=== PATIENT | female | born 1970 | race Caucasian/White ===

== ENCOUNTER 2018-04-22 04:43 | Inpatient (IN) | payer SELFPAY ==
[~2018-04-22] VITALS: Ht 160 cm; Wt 76.7 kg
[2018-04-22] VITALS (22 sets, daily range): BP systolic 107–183; BP diastolic 62–108
[~2018-04-22 04:43] MED LIST: ACET-704 PO; ALPR0.5T PO; ALPR1TAB2 PO; ALPR1TAB6 PO; ASPI81TA50 PO; BUPR100T11 PO; CILO100T PO; CYCL5TAB PO; HUM100VI5 SQ; HYDR-2678 PO; INSU100V13 SQ; LOVA10TA PO; LOVA20TA2 PO; METF100010 PO; METF500T16 PO; METO-239 PO; METO-269 PO; OXYC1TAB15 PO; OXYC1TAB7 PO; OXYC5CAP PO; PRAS10TA9 PO; TRAZ-86 PO
[2018-04-22] MEDS ORDERED: INSU100V13 SQ (05:32)
[2018-04-22] MEDS ORDERED: DEXTROSE 50% 25 GM / 50ML DISP.SYRIN. IV PRN (06:15)
[2018-04-22] MEDS: IV NORMAL SALINE 1000ML BAG 1,000 ML IV SCH ×2 (06:34→19:35)
[2018-04-22] MEDS ORDERED: IOHEXOL 300 MG/ML 100ML VIAL. IV ONE (07:15)
[2018-04-22] MEDS ORDERED: CONTRAST GIVEN. MC PRN (07:15)
--- NOTE | 2018-04-22 08:42 | RAD ---
Examination: CT angiography head and neck HISTORY: History of CVA post TPA COMPARISON: None available TECHNIQUE: Axial CT angiography images of the head and neck were performed with IV contrast. Coronal and sagittal 3-D MIP reformats are performed Exposure: One or more of the following individualized dose reduction techniques were utilized for this examination: 1. Automated exposure control 2. Adjustment of the mA and/or kV according to patient size 3. Use of iterative reconstruction technique PQRS Compliance Statement - Stenosis calculations for CT, MR and conventional angiography are based upon measurement of the distal ICA diameter in accordance with the NASCET methodology. Stenosis calculations for carotid ultrasound studies are derived from validated velocity criteria which are known to correlate with the NASCET methodology. FINDINGS: The origin of the great vessels from the arch of the aorta grossly appear patent. The visualized common carotid arteries, internal, external carotid arteries are patent. The visualized petrous and cavernous portions of the internal carotid arteries are patent. The bilateral middle cerebral arteries, anterior cerebral arteries are patent without thrombosis. The bilateral vertebral arteries are patent. The basilar artery, left posterior cerebral artery is patent. There is origin of the right posterior cerebral artery from the right ICA. There is a 1.6 cm nodule identified in the right lobe of the thyroid gland. Emphysematous changes identified in the apical lungs Moderate degenerative changes cervical spine. IMPRESSION: 1. No evidence of occlusive thrombus or aneurysm identified in the visualized carotid vertebrobasilar arterial system. 2. 1.6 cm nodule identified in the right lobe of thyroid gland. Follow-up nonemergent ultrasound thyroid is recommended. Electronically signed by: Gustavo Rosas MD (04/22/2018 8:38 AM) [facility]
[2018-04-22] MEDS: INSULIN LISPRO 300 UNITS/3 ML INSULN.PEN. SQ SCH ×3 (09:30→17:51)
--- NOTE | 2018-04-22 11:04 | HP ---
ADMIT DATE: 04/22/2018 HISTORY OF PRESENT ILLNESS: The patient is a 47-year-old female patient with multiple medical problems who presented to the Emergency Room with sudden onset of difficulty finding her words, slurred speech and numbness in her lips and fingers. The patient noted that she was cooking dinner at home with a friend when she had the acute onset of the symptoms that started approximately at 9:30 p.m. last night. The patient presented to the Emergency Department 3 hours after the onset of symptoms and she knows that her symptoms have been progressive. She and after the onset of symptoms because she lied down to try and make them go away. She notes also that she felt short of breath since the onset of symptoms. She denied having any similar symptoms in the past. She is currently on antiplatelet in the form of aspirin and Plavix. She denied any trauma, falls, fever, chills or rigors. She stated that she feels drugged. She was extensively investigated in the Emergency Room and has had a CT scan of the head without contrast, which showed no intracranial hemorrhage, no midline shift. Basilar cisterns are patent Ventricles and sulci are unremarkable. No acute osseous abnormality. Orbits and paranasal sinuses unremarkable. Apparently, the neurologist was contacted. Her NIHSS was [address] scan without acute process. EKG is stable and she was given aspirin and then, Dr. Hunter, the neurologist was contacted and he agreed to administer TPA that was initiated. An attempt at obtaining CT angio of the chest at the head and neck was not obtained because of lack of vascular access despite multiple attempts by the Emergency Room registered nurses and 2 attempts by the ER physician under ultrasound guidance. [facility] was contacted and Dr. Vora, the neurologist at stated that the probability of large vessel occlusion is very low given the symptomatology and reports interventionalist typically will not intervene unless if the patient's National [facility] score was less than 6 and therefore, the patient was transferred to [facility] through the ICU and by the time I saw her, she was sleepy but arousable. She was responding appropriately and apart from headache, she denied any other complaint. PAST MEDICAL HISTORY: Significant for hypertension, hyperlipidemia, type 2 diabetes. She has coronary artery disease with PCI and stent deployment. She also has breast cancer for which she underwent bilateral mastectomy. She is also known to have irritable bowel syndrome as well as anxiety. PAST SURGICAL HISTORY: Significant for two C-sections, PCI with stent deployment as well as double mastectomy. ALLERGIES: SHE IS ALLERGIC TO PENICILLIN. FAMILY HISTORY: She has 4 sisters alive and 1 brother still alive and healthy. One brother at age of 29. He committed suicide. Her father of gastric cancer at the age of 61. Her mother is still alive and survived the breast cancer. She is also known to have gastric ulcers and anxiety. SOCIAL HISTORY: She is single, never , currently living with her boyfriend. She has 8 children, 5 sons and 3 daughters. She smokes less than a pack a day of cigarettes. She does not drink alcohol or use any recreational drugs. REVIEW OF SYSTEMS: The patient denied any blurring of vision, cataract, glaucoma or macular degeneration. Denied any earache, tinnitus or sensorineural deafness. Denied any nosebleeds, stuffy nose or postnasal drip. Denied any sore throat, sore tongue, toothache, hoarseness of voice or difficulty swallowing. Denied any nausea, vomiting, diarrhea or constipation. Denied any hematemesis, melena or hematochezia. Denied any chest pain. Did complain of shortness of breath. Denied any orthopnea or paroxysmal nocturnal dyspnea. Denied any cough, phlegm or hemoptysis. PHYSICAL EXAMINATION: GENERAL: When I saw her, she was resting slightly propped up in bed, in no apparent respiratory distress. No pallor, jaundice, cyanosis, or thyromegaly. No jugular venous distension. No limb edema. VITAL SIGNS: Her heart rate was 94, blood pressure was 146/75, temperature was 98.7, respiratory rate was 18 and oxygen saturation was 97%. HEAD, EYES, EARS, NOSE AND THROAT: Showed normocephalic, atraumatic. NECK: Supple. HEART: Showed normal first and second sounds. No gallop, rub or murmur. CHEST: Clear to auscultation. No crepitation or rhonchi. ABDOMEN: Distended, soft, nontender. NEUROLOGIC: She was sleepy, but arousable. All her cranial nerves are intact. EXTREMITIES: She moves her extremities spontaneously. LABORATORY DATA: She apparently has had lab work done at [facility], which showed a white cell count of 11,600, hemoglobin 15.4, hematocrit 44.9, MCV 88 and platelet count 224,000 with normal manual differential. Her prothrombin time was 10.1, INR of 1, aPTT was 24. Her serum sodium was 135, potassium 3.5, chloride 97, bicarbonate 27, glucose was 470, BUN of 10, creatinine 0.8. Estimated GFR was 77 mL per minute. Her total protein was 6.5, albumin was 3.7, calcium was 9.1. Total bilirubin, AST, ALT, alkaline phosphatase were normal. Her albumin was 3.7, globulin was 2.8. Her magnesium was 1.9, lactic acid was 1.4, ammonia was less than 10. Her tox screen was positive for cannabinoids as well as benzodiazepine. Was negative for opiates, methadone, barbiturate, phencyclidine, amphetamine, methamphetamine, cocaine and alcohol. Her CT scan of the head without contrast showed that there is no intracranial hemorrhage with midline shift. Basal cisterns are patent. Ventricles and sulci are unremarkable. No acute osseous abnormality. Orbits and paranasal sinuses are unremarkable. ASSESSMENT AND PLAN: Basically, the patient is transferred to [facility] ICU. We will consult Neurology. Arrangement has been made for her to have a CT, CT angio of the neck and head. I will consult the speech therapy as well as physical and occupational therapist and start her on insulin sliding scale. I will hold her metformin as she will receive intravenous contrast and we will decide on further management according to her response. JESSICA CHIRINOS MD DR: SABINA/lesvia JOB#: [id number] / [id number]
[2018-04-22] MEDS: ASPIRIN ENTERIC COATED 81 MG TABLET.DR. PO SCH (13:59)
[2018-04-22] MEDS: ALPRAZolam 1 MG TABLET PO SCH ×2 (14:00→21:36)
[2018-04-22] MEDS: PRASUGREL 10 MG TABLET. PO SCH (14:00)
[2018-04-22] MEDS: METOPROLOL SUCC 24HR ER 25 MG TAB.ER.24H. PO SCH (14:00)
[2018-04-22] MEDS: oxyCODONE/APAP 5/325 1 TAB TABLET PO PRN (14:07)
[2018-04-22] MEDS: buPROPion XL 150 MG TAB.ER.24H. PO SCH (14:57)
--- NOTE | 2018-04-22 20:48 | PDOC2 ---
CONSULT Date of Consult Date of Consult DATE: 04/22/18 TIME: 20:45 Reason for Consult Reason for Consult: code stroke Identification/Chief Complaint Chief Complaint slurry speech History of Present Illness Reason for Visit: This patient is 47-year-old woman with past medical history of multiple medical problems patient presented with slurring of speech, word-finding difficulty patient had numbness on the left side of the face patient was feeling weak patient was having difficulty with gait and balance. She presented to emergency room in timely fashion. The on the brain which did not show any evidence of acute intracranial abnormality there was no evidence of acute hemorrhage. Past Medical History Cardiovascular: CAD, HTN, [place] GI: No pertinent hx Heme/Onc: Cancer Hepatobiliary: No pertinent hx Psych: Addictions Rheumatologic: No pertinent hx Infectious disease: No pertinent hx Renal/: No pertinent hx Endocrine: Diabetes Past Surgical History Past Surgical History: Mastectomy, Hysterectomy, Other Family History Family History: Other Social History ALCOHOL: occassional Drugs: None Lives: with Family Current Medications Current Medications Current Medications Influenza Virus Vaccine (Afluria Trivalent [id number] Syringe) 0.5 ml ONCE ONCE VAX IM Last administered on 04/22/18at 10:18; Start 04/22/18 at 09:00; Stop 04/22/18 at 09:01; Status DC Sodium Chloride 1,000 ml @ 75 mls/hr [id number] IV Last administered on at 06:34; Start 04/22/18 at 06:15 Insulin Glargine (Lantus) 65 units QHS SQ ; Start 04/22/18 at 21:00 Insulin Human Lispro (HumaLOG) 0-9 UNITS TIDWMEALS SQ Last administered on 04/22at 17:51; Start 04/22/18 at 08:00 Dextrose (Dextrose 50%-Water Syringe) 12.5 gm PRN Q15MIN PRN IV SEE COMMENTS; Start 04/22/18 at 06:15 Iohexol (Omnipaque 300 Mg/ml) 75 ml 1X ONCE IV Last administered on 04/22/18at 07:15; Start 04/22/18 at 07:15; Stop 04/22/18 at 07:16; Status DC Info (CONTRAST GIVEN -- Rx MONITORING) 1 each PRN DAILY PRN MC SEE COMMENTS; Start 04/22/18 at 07:15; Stop 04/24/18 at 07:14 Alprazolam (Xanax) 1 mg TID PO Last administered on 04/22/18at 14:00; Start 04/22/18 at 14:00 Aspirin (Ecotrin) 81 mg DAILY PO ; Start 04/22/18 at 14:00 Bupropion HCl (Wellbutrin Xl) 150 mg DAILY PO Last administered on 04/22/18at 14 :57; Start 04/22/18 at 14:00 Metoprolol Succinate (Toprol Xl) 25 mg DAILY PO Last administered on 04/22/18at 14:00; Start 04/22/18 at 14:00 Oxycodone/ Acetaminophen (Percocet 5/325) 1 tab PRN Q6HRS PRN PO MODERATE TO SEVERE PAIN Last administered on 04/22/18at 14:07; Start 04/22/18 at 13:45 Trazodone HCl (Desyrel) 100 mg QHS PO ; Start 04/22/18 at 21:00 Cyclobenzaprine HCl (Flexeril) 5 mg QHS PO ; Start 04/22/18 at 21:00 Insulin Glargine (Lantus) 65 units QHS SQ ; Start 04/22/18 at 21:00; Status Cancel Atorvastatin Calcium (Lipitor) 5 mg QHS PO ; Start 04/22/18 at 21:00 Metformin HCl (Glucophage) 1,000 mg DAILYWBKFT PO ; Start 04/24/18 at 08:00 Prasugrel (Effient) 10 mg DAILYWBKFT PO ; Start 04/22/18 at 14:00 Active Scripts Active Effient (Prasugrel Hcl) 10 Mg Tablet 1 Tab PO DAILY Metoprolol Succinate ( Xl ) (Metoprolol Succinate) 25 Mg Tab.er.24h 1 Tab PO DAILY Reported Levemir (Insulin Detemir) 100 Unit/1 Ml Vial 65 Unit SQ QHS Oxycodone-Acetaminophen 5-325 (Oxycodone Hcl/Acetaminophen) 1 Each Tablet 1 Each PO PRN Q6HRS PRN Aspir-Low (Aspirin) 81 Mg Tablet.dr 1 Tab PO DAILY Lovastatin 10 Mg Tablet 10 Mg PO HS Alprazolam 1 Mg Tablet 1 Tab PO TID Cyclobenzaprine Hcl 5 Mg Tablet 1 Tab PO QHS Metformin Hcl Er (Metformin Hcl) 1,000 Mg Tab.er.24 1,000 Mg PO DAILYWBKFT Bupropion Hcl 100 Mg Tablet 150 Mg PO DAILY Trazodone Hcl 100 Mg Tablet 1 Tab PO QHS Allergies Allergies: Coded Allergies: Penicillins (Verified Allergy, Intermediate, 11/27/15) Physical Exam Physical Exam General no acute distress. Respiratory: clear Heart: Regular rate and rhythm, S1S2 normal HEENT: Normocephalic and atraumatic. NECK: Supple without bruit Respiratory: Clear to auscultation bilaterally Heart: Regular rate and rhythm, S1S2 normal NEUROLOGIC: Mental status able to tell is name, right month, knows he is in the hospital. Able to follow simple commands. Cranial nerve equally reactive pupils, and intact extraocular movements. no facial asymmetry. Left face dec sensation, Palate elevates and tongue protrudes in midline. Reflexes are 1+ with flexor plantar responses. Strength able to move all exts equally. Sensory exam is intact for light touch and pinprick. Gait in bed. Vitals VITALS Vital Signs Date Time Temp Pulse Resp B/P (MAP) Pulse Ox O2 Delivery O2 Flow Rate FiO2 04/22/18 20:00 Room Air 04/22/18 20:00 98.2 81 18 143/71 (95) 98 98.2 04/22/18 14:07 2.0 Labs Labs Laboratory Tests Test 04/22/18 05:00 04/22/18 05:11 04/22/18 09:28 04/22/18 12:21 Nasal Screen MRSA (PCR) Negative (Negative) Glucose (Fingerstick) 359 mg/dL (70-99) 394 mg/dL (70-99) 247 mg/dL (70-99) Laboratory Tests Test 04/22/18 05:00 04/22/18 05:11 04/22/18 09:28 04/22/18 12:21 Nasal Screen MRSA (PCR) Negative (Negative) Glucose (Fingerstick) 359 mg/dL (70-99) 394 mg/dL (70-99) 247 mg/dL (70-99) Assessment/Plan Assessment/Plan This patient is 47-year-old woman with past medical history of multiple medical problems patient presented with slurring of speech, word-finding difficulty patient had numbness on the left side of the face patient was feeling weak patient was having difficulty with gait and balance. She presented to emergency room in timely fashion. The on the brain which did not show any evidence of acute intracranial abnormality there was no evidence of acute hemorrhage. 47-year-old woman presented to emergency room with the stroke symptoms patient was within the window for IV t-PA there was no contraindications to IV t-PA patient agreed to risk and benefit. Patient was transferred to [facility] patient had a CTA head and neck done which was negative for any acute thrombus or aneurysm. Patient had improvement of symptoms after IV t-PA patient was admitted to ICU for close monitoring. Check carotid Doppler with bubble study. Will get MRI of brain and 24-hour post TPA. PT OT speech evaluation. Check lipid profile, statin, Patient is admitted under post TPA protocol. Continue medical management. Plan discussed with patient and patient 's family in detail IRMA LION MD Apr 22, 2018 20:48
[2018-04-22] MEDS ORDERED: INSULIN GLARGINE 300 UNITS/3 ML INSULN.PEN. SQ SCH ×2 (21:00)
[2018-04-22] MEDS ORDERED: traZODone 100 MG TABLET. PO SCH (21:00)
[2018-04-22] MEDS ORDERED: CYCLOBENZAPRINE 10 MG TABLET. PO SCH (21:00)
[2018-04-22] MEDS ORDERED: ATORVASTATIN CALCIUM 10 MG TABLET. PO SCH (21:00)
[2018-04-23] VITALS (16 sets, daily range): BP systolic 96–142; BP diastolic 49–78
[2018-04-23 04:30] LABS: HEMATOCRIT 43.5 % (36.0-47.0); RED BLOOD COUNT 4.9 x10^6/uL (3.50-5.40); RED CELL DISTRIBUTION WIDTH 13.4 % (11.5-14.5); WHITE BLOOD COUNT 6.7 x10^3/uL (4.0-11.0)
[2018-04-23 04:55] LABS: ALBUMIN 3.3 g/dL (3.4-5.0); ALBUMIN/GLOBULIN RATIO 1.1 (1.0-1.7); CALCIUM 8.8 mg/dL (8.5-10.1); CREATININE 0.7 mg/dL (0.6-1.0); GFR 90.5; POTASSIUM 3.4 mmol/L (3.5-5.1); TOTAL BILIRUBIN 0.4 mg/dL (0.2-1.0); TOTAL PROTEIN 6.3 g/dL (6.4-8.2)
[2018-04-23 04:56] LABS: CHOLESTEROL/HDL RATIO 6.7
[2018-04-23] MEDS: INSULIN LISPRO 300 UNITS/3 ML INSULN.PEN. SQ SCH ×2 (08:00→12:34)
[2018-04-23] MEDS: PRASUGREL 10 MG TABLET. PO SCH (08:09)
[2018-04-23] MEDS: ASPIRIN ENTERIC COATED 81 MG TABLET.DR. PO SCH (08:09)
[2018-04-23] MEDS: oxyCODONE/APAP 5/325 1 TAB TABLET PO PRN ×2 (08:10→14:12)
[2018-04-23] MEDS: METOPROLOL SUCC 24HR ER 25 MG TAB.ER.24H. PO SCH (08:11)
[2018-04-23] MEDS: ALPRAZolam 1 MG TABLET PO SCH ×2 (08:11→13:50)
[2018-04-23] MEDS: IV NORMAL SALINE 1000ML BAG 1,000 ML IV SCH (08:55)
[2018-04-23] MEDS: buPROPion XL 150 MG TAB.ER.24H. PO SCH (10:22)
[2018-04-23] MEDS ORDERED: GADOBUTROL 7.5 MMOL/7.5 ML VIAL IV ONE (11:00)
--- NOTE | 2018-04-23 15:02 | RAD ---
MRI of the Brain without and with Contrast 04/23/2018 Clinical History: Right arm numbness and tingling. Post TPA therapy. Technique: Unenhanced T1-weighted sagittal and axial and FLAIR, T2-weighted, gradient echo and diffusion-weighted axial images of the brain were obtained. After the intravenous administration of 7.5 cc of Gadavist, enhanced T1-weighted axial, sagittal and coronal images of the brain were obtained. Findings: Comparison is made to patient's CT scan of the head dated 04/22/2018. The ventricles and sulci are within normal limits in size and configuration. Patchy and several small scattered areas of increased signal intensity are seen within the periventricular and subcortical white matter of both cerebral hemispheres on the FLAIR and T2-weighted images consistent most likely with areas of minimal small vessel ischemic disease. No acute parenchymal abnormality is seen. No abnormal area of contrast enhancement is seen. No extra-axial fluid collection is noted. There is no MRI evidence of acute ischemia/infarction. Mild mucosal thickening in seen scattered throughout the paranasal sinuses. There are minimal bilateral mastoid effusions. Normal flow voids are seen within the major vascular structures surrounding the brain parenchyma. Impression: No acute parenchymal abnormality is seen. Electronically signed by: Brandon Yi MD (04/23/2018 2:58 PM) [id number]
--- NOTE | 2018-04-23 15:28 | PN ---
DATE: 04/23/2018 SUBJECTIVE: The patient is resting, slightly propped up, sleeping comfortably in no apparent distress. She is awake, alert. Upon questioning her, she denied any complaints except some headache. Denied any nausea or vomiting. Denied any tingling, numbness or weakness. She apparently has been up and about and did well with her food and has no problem with swallowing. She was seen by the speech therapist and she is on a regular diet with thin liquid. She has had a head and neck CT angio, which basically showed that the visualized common carotid arteries, internal, and external carotid arteries are patent. The visualized petrous and cavernous portions of the internal carotid arteries are patent. The bilateral middle cerebral arteries and anterior cerebral arteries are patent without any thrombus. The basilar artery, left posterior cerebral artery is patent. There is a origin of the right posterior cerebral arteries from the right internal carotid artery. There is a 1.6 cm nodule identified in the right lobe of the thyroid gland, emphysematous changes identified in the apical lungs with degenerative changes of cervical spine with the impression that there is no evidence of occlusive thrombus or aneurysm identified in the visualized carotid and vertebrobasilar arterial system. PHYSICAL EXAMINATION: GENERAL: When I examined her this morning, she looked well and was clearly in no apparent respiratory distress. No pallor, jaundice, cyanosis, or thyromegaly. No jugular venous distension. No lower limb edema. VITAL SIGNS: Her heart rate was 73, blood pressure was 126/68, temperature was 98, respiratory rate was 18 and oxygen saturation was 98% on room air. HEAD, EYES, EARS, NOSE AND THROAT: Showed normocephalic, atraumatic. NECK: Supple. HEART: Showed normal first and second sounds. No gallop, rub or murmur. CHEST: Clear to auscultation. No crepitation or rhonchi. ABDOMEN: Distended, soft, nontender. NEUROLOGIC: She is awake, alert, responding appropriately. All cranial nerves intact. She moves extremities without difficulty. She ambulates without assistance or assistive devices. LABORATORY DATA: Showed a white cell count 6700, hemoglobin 15, hematocrit 44, MCV 89 and platelet count of 196,000. Her chemistry as of this morning showed a serum sodium 143, potassium 3.4, chloride 106, bicarbonate 27, anion gap of 10, BUN 6, creatinine 0.7, estimated GFR was 90 mL per minute, her glucose was 202, calcium was 8.8. Total bilirubin, AST, ALT, alkaline phosphatase were normal. Total protein was 6.3, albumin 3.3. Her serum triglycerides were 247, total cholesterol was 202, LDL cholesterol was 123, VLDL was 49, her HDL cholesterol was 30 and the ratio was 6.7. Her nasal screen for MRSA by PCR was negative. IMPRESSION: In summary, this is a 47-year-old female patient who was admitted with a slurring speech, word finding difficulty, numbness in the left side of the face and feeling weak, difficulty with her gait and balance. She had a CT scan of the brain, which showed no evidence of any intracranial hemorrhage. She was treated with TPA after consultation with the neurologist and was transferred to [facility]. Her symptoms have improved and she was admitted to the ICU for close monitoring. She is scheduled to have an MRI. She was evaluated by Speech Therapy and she is now on regular diet with thin liquid. She will be evaluated by PT, OT and if she remained stable and the neurologist has no object in discharging her, we will let her go home. JESSICA CHIRINOS MD DR: SABINA/lesvia JOB#: [id number] / [id number]
--- NOTE | 2018-04-23 15:40 | CARD ---
MR#: [id number] Date of Study: 04/23/2018 Ordering Physician: IRMA LION, Referring Physician: JESSICA CHIRINOS, Tech: Chrissy Baptiste APPROVED REPORT EXAM: Two-dimensional and M-mode echocardiogram with Doppler and color Doppler. Other Information Quality : AverageHR: 65bpm INDICATION CVA/TIA Echo Enhancing Agent Indication: Rule Out Septal Defect Agent/Amount Used: Agitated Saline 8mL 2D DIMENSIONS RVDd2.5 (2.9-3.5cm)Left Atrium(2D)3.0 (1.6-4.0cm) IVSd1.1 (0.7-1.1cm)Aortic Root(2D)1.9 (2.0-3.7cm) LVDd3.6 (3.9-5.9cm)LVOT Diameter2.0 (1.8-2.4cm) PWd1.0 (0.7-1.1cm)LVDs2.0 (2.5-4.0cm) FS (%) 43.6 %SV40.4 ml LVEF(%)75.7 (>50%) Aortic Valve AoV Peak Chaim.94.4cm/sAoV VTI18.7cm AO Peak GR.3.6mmHgLVOT VTI 13.15cm AO Mean GR.2mmHg Mitral Valve MV E Iaqmjjvc15.0cm/sMV DECEL [id number] MV A Lnbumunc00.1cm/sE/A Ratio1.6 TDI Lateral E' P. V6.95cm/sMedial E' P. V7.47cm/s E/Lateral E'11.1E/Medial E'10.3 Tricuspid Valve TR P. Xktrrhoe720qe/sRAP [id number] TR Peak Gr.12icAaNKNR87clGn LEFT VENTRICLE The left ventricle is normal size. There is normal left ventricular wall thickness. The left ventricu lar systolic function is normal and the ejection fraction is within normal range. The Ejection Fracti on is >55%. There is normal LV segmental wall motion. The left ventricular diastolic function and sky ling is normal for age. RIGHT VENTRICLE The right ventricle is borderline dilated. There is normal right ventricular wall thickness. The righ t ventricular systolic function is normal. ATRIA The left atrium size is normal. The right atrium size is normal. The interatrial septum is intact wit h no evidence for an atrial septal defect or patent foramen ovale as noted on 2-D or Doppler imaging. Agitated saline study was suboptimal but no clear evidence of atrial level shunt. AORTIC VALVE The aortic valve is normal in structure and function. Doppler and Color Flow revealed trace aortic re gurgitation. There is no significant aortic valvular stenosis. MITRAL VALVE The mitral valve is normal in structure and function. There is no mitral valve stenosis. Doppler and Color-flow revealed trace mitral regurgitation. TRICUSPID VALVE The tricuspid valve is normal in structure and function. Doppler and Color Flow revealed trace tricus pid regurgitation with an estimated PAP of 19 mmHg. There is no tricuspid valve stenosis. PULMONIC VALVE The pulmonic valve is not well visualized. Doppler and Color Flow revealed trace pulmonic valvular re gurgitation. There is no pulmonic valvular stenosis. GREAT VESSELS The aortic root is normal in size. The IVC is normal in size and collapses >50% with inspiration. PERICARDIAL EFFUSION There is no evidence of significant pericardial effusion. Critical Notification Critical Value: No <Conclusion> The left ventricular systolic function is normal and the ejection fraction is within normal range. Th e Ejection Fraction is >55%. There is normal LV segmental wall motion. The interatrial septum is intact with no evidence for an atrial septal defect or patent foramen ovale as noted on 2-D or Doppler imaging. Agitated saline study was suboptimal but no clear evidence of at rial level shunt. Signed by : Armando Villalobos, Electronically Approved : 04/23/2018 15:39:34
--- NOTE | 2018-04-23 16:43 | PDOC ---
PROGRESS NOTES Assessment Assessment IMPRESSION: TIA like symptoms, maybe cognitive impairment due to hyperglycemia. Hyperglycemia, glucose level 394. DM. HTN. CAD. Thyroid nodule. No evidence of CVA this time. RECOMMENDATIONS/PLAN: ASA 325 mg daily. Lipitor 40 mg HS. Control hyperglycemia. Treat medical diseases. FU with PCP. CTA: normal. Echo + Bubble study: negative. Past Medical History Cardiovascular: CAD, HTN, [place] GI: No pertinent hx Heme/Onc: Cancer Hepatobiliary: No pertinent hx Psych: Addictions Rheumatologic: No pertinent hx Infectious disease: No pertinent hx Renal/: No pertinent hx Endocrine: Diabetes Past Surgical History Mastectomy, Hysterectomy. Family History Non contributory. Allergies Coded Allergies: Penicillins (Verified Allergy, Intermediate, 11/27/15) MEDICATIONS: Refer to [facility] REVIEW OF SYSTEMS: Constitutional: Over weight. Head: No traumatic brain or head injury. Skin: No edema, or rash. Ear: No infection.. Eyes: No vision loss, or diplopia. Nose: No bleeding or purulent discharges. Hearing: No hearing decrease. Neck: No injury. Breast: No history of cancer, masses, or discharges. Cardiac: CAD, HTN, HLD Pulmonary: No COPD. GI: No GI Ulcer, GI bleeding. Urinary/genital: UTI. Endocrine: Diabetes Mellitus. Skeletomuscular: No muscular atrophy, deformity. Neurological: see HP. Psychiatric: Denies drug use/abuse. Otherwise, not [id number] review of systems. PHYSICAL EXAMINATION: General appearance in no acute distress. HEENT: Normocephalic and nontraumatic. Eyes, nose, ears, and throat are unremarkable. Neck is supple. No lymphadenopathy. No bruits are heard over the carotid artery. No Crepitus. Cardiovascular: S1, S2, regular rate and rhythm. Pulmonary: Clear to auscultation bilaterally. Abdomen: Bowel sounds are positive. Abdomen is soft, nontender, and nondistended. Extremities: No rash, lesions, or edema. No restriction of range of motion NEUROLOGICAL EXAMINATION: Alert. Oriented to time, place and person. PERRL. EOMI. CN: no focal findings. Muscle tone: within normal. Muscle strength: 5 DTR: 2 Plantar reflex: Flexor response bilaterally Gait: At baseline normal. Sensory exam: no abnormal findings. No cerebellar signs elicited. F-T-N test accurate. Objective Objective Vital Signs Date Time Temp Pulse Resp B/P (MAP) Pulse Ox O2 Delivery O2 Flow Rate FiO2 04/23/18 16:23 98 Room Air 04/23/18 16:16 82 19 127/56 (79) 04/23/18 09:10 2.0 04/23/18 07:00 97.7 97.7 Intake and Output 04/23/18 07:00 Intake Total 1750 ml Output Total 2600 ml Balance -850 ml Intake Oral 1750 ml Output Urine Total 2600 ml Vitals Signs Vitals VS - Last 72 Hours, by Label Date Time Temp Pulse Resp B/P (MAP) Pulse Ox O2 Delivery O2 Flow Rate FiO2 04/23/18 16:23 98 Room Air 04/23/18 16:16 82 19 127/56 (79) 97 Room Air 04/23/18 16:00 Room Air 04/23/18 14:12 23 99 Room Air 04/23/18 14:00 80 20 123/66 (85) 97 Room Air 04/23/18 13:00 80 16 123/66 (85) 97 Room Air 04/23/18 12:00 86 16 115/75 (88) 98 Room Air 04/23/18 12:00 Room Air 04/23/18 11:00 80 15 133/71 (91) 98 Room Air 04/23/18 10:00 66 8 96/50 (65) 96 Room Air 04/23/18 09:10 8 2.0 04/23/18 09:00 65 13 105/49 (67) 95 Room Air 04/23/18 08:11 68 127/55 04/23/18 08:10 24 Room Air 04/23/18 08:00 63 13 127/55 (79) Room Air 04/23/18 08:00 Room Air 04/23/18 07:00 97.7 72 14 120/64 (82) Room Air 97.7 04/23/18 06:00 73 18 126/68 (87) 98 Room Air 04/23/18 05:00 70 18 119/70 (86) 98 Room Air 04/23/18 04:00 Room Air 04/23/18 04:00 98.0 67 18 119/66 (83) 98 Room Air 98.0 04/23/18 03:00 75 18 116/78 (91) 98 Room Air 04/23/18 02:00 81 18 118/70 (86) 98 Room Air 04/23/18 01:00 76 18 142/72 (95) 98 Room Air 04/23/18 00:06 98.7 84 18 125/69 (87) 98 Room Air 98.7 04/22/18 23:59 Room Air 04/22/18 23:00 84 18 107/62 (77) 98 Room Air 04/22/18 22:00 71 18 141/63 (89) 98 Room Air 04/22/18 21:00 75 18 154/75 (101) 98 Room Air 04/22/18 20:00 Room Air 04/22/18 20:00 98.2 81 18 143/71 (95) 98 Room Air 98.2 04/22/18 19:00 73 18 132/67 (88) 98 Room Air 04/22/18 18:00 81 18 174/108 (130) 98 Room Air 04/22/18 17:00 73 19 155/72 (99) 98 Room Air 04/22/18 16:00 Room Air 04/22/18 16:00 98.1 66 13 140/69 (92) 95 Room Air 98.1 04/22/18 15:00 79 22 142/71 (94) 100 Room Air 04/22/18 14:07 16 99 Nasal Cannula 2.0 04/22/18 14:00 79 22 142/71 (94) 100 Room Air 04/22/18 14:00 83 169/75 04/22/18 13:00 87 22 183/100 (127) 99 Room Air 04/22/18 12:00 98.2 72 21 156/80 (105) 99 Room Air 98.2 04/22/18 12:00 Room Air 04/22/18 11:00 95 15 147/75 (99) 95 Room Air 04/22/18 10:00 87 15 145/72 (96) 95 Room Air 04/22/18 09:00 86 18 121/75 (90) 96 Room Air 04/22/18 08:00 97.9 89 18 125/75 (92) 95 Room Air 97.9 04/22/18 08:00 Room Air 04/22/18 07:00 86 20 123/70 (87) 93 Room Air Laboratory Laboratory Laboratory Tests Test 04/22/18 17:45 12/2/18 21:42 04/23/18 03:50 04/23/18 07:27 Glucose (Fingerstick) 240 mg/dL (70-99) 200 mg/dL (70-99) 150 mg/dL (70-99) White Blood Count 6.7 x10^3/uL (4.0-11.0) Red Blood Count 4.90 x10^6/uL (3.50-5.40) Hemoglobin 15.0 g/dL (12.0-15.5) Hematocrit 43.5 % (36.0-47.0) Mean Corpuscular Volume 89 fL (79-100) Mean Corpuscular Hemoglobin 31 pg (25-35) Mean Corpuscular Hemoglobin Concent 34 g/dL (31-37) Red Cell Distribution Width 13.4 % (11.5-14.5) Platelet Count 196 x10^3/uL (140-400) Sodium Level 143 mmol/L (136-145) Potassium Level 3.4 mmol/L (3.5-5.1) Chloride Level 106 mmol/L (98-107) Carbon Dioxide Level 27 mmol/L (21-32) Anion Gap 10 (6-14) Blood Urea Nitrogen 6 mg/dL (7-20) Creatinine 0.7 mg/dL (0.6-1.0) Estimated GFR (Cockcroft-Gault) 90.5 BUN/Creatinine Ratio 9 (6-20) Glucose Level 202 mg/dL (70-99) Calcium Level 8.8 mg/dL (8.5-10.1) Total Bilirubin 0.4 mg/dL (0.2-1.0) Aspartate Amino Transf (AST/SGOT) 15 U/L (15-37) Alanine Aminotransferase (ALT/SGPT) 31 U/L (14-59) Alkaline Phosphatase 75 U/L (46-116) Total Protein 6.3 g/dL (6.4-8.2) Albumin 3.3 g/dL (3.4-5.0) Albumin/Globulin Ratio 1.1 (1.0-1.7) Triglycerides Level 247 mg/dL (0-150) Cholesterol Level 202 mg/dL (0-200) LDL Cholesterol, Calculated 123 mg/dL (0-100) VLDL Cholesterol, Calculated 49 mg/dL (0-40) Non-HDL Cholesterol Calculated 172 mg/dL (0-129) HDL Cholesterol 30 mg/dL (40-60) Cholesterol/HDL Ratio 6.7 Test 04/23/18 11:59 Glucose (Fingerstick) 362 mg/dL (70-99) Medication Medications Current Medications Atorvastatin Calcium (Lipitor) 5 mg QHS PO Last administered on 04/22/18at 21:37 ; Start 04/22/18 at 21:00 Cyclobenzaprine HCl (Flexeril) 5 mg QHS PO Last administered on 04/22/18at 21:36 ; Start 04/22/18 at 21:00 Gadobutrol (Gadavist) 7.5 mmol 1X ONCE IV Last administered on 04/23/18at 11:16 ; Start 04/23/18 at 11:00; Stop 04/23/18 at 11:01; Status DC Insulin Glargine (Lantus) 65 units QHS SQ Last administered on 04/22/18at 21:47 ; Start 04/22/18 at 21:00 Insulin Glargine (Lantus) 65 units QHS SQ ; Start 04/22/18 at 21:00; Status Cancel Metformin HCl (Glucophage) 1,000 mg DAILYWBKFT PO ; Start 04/24/18 at 08:00 Trazodone HCl (Desyrel) 100 mg QHS PO Last administered on 04/22/18at 21:36; Start 04/22/18 at 21:00 Comment Review of Relevant I have reviewed the following items vicky (where applicable) has been applied. MORIAH CONN MD Apr 23, 2018 16:43
--- NOTE | 2018-04-23 17:12 | EEG ---
DATE OF SERVICE: 04/23/2018 EEG NUMBER: [id number]. OBJECTIVE: This is a 47-year-old female patient with symptoms of cognitive impairment. EEG was requested to help rule out seizure. METHODS: Twenty electrodes were applied according to the international 10-20 electrode placement system. EKG monitoring, hyperventilation, intermittent photic stimulation, monopolar and bipolar montages are routinely utilized. The record was obtained on a digital system with video monitoring. FINDINGS: 1. Background: The patient was recorded in the awake, drowsy, and sleep states. The overall background amplitude is 10-30 microvolts. A posterior dominant rhythm of 9-10 Hz is observed. 2. Abnormalities: No specific epileptiform discharge or electrographic seizure is seen. No focal or diffuse slowing. 3. Activation: Hyperventilation was performed with good efforts and normal response. Intermittent photic stimulation was performed with photic driving. No specific epileptiform discharge or electrographic seizure induced by hyperventilation or intermittent photic stimulation. IMPRESSION: This EEG is a normal study for the awake, drowsy, and sleep states. No focal, lateralizing, specific epileptiform discharge or electrographic seizure is seen. MORIAH CONN MD DR: BENITO/lesvia JOB#: [id number] / [id number] NIA
[2018-04-23] MEDS ORDERED: ATORVASTATIN CALCIUM 40 MG TABLET. PO SCH (21:00)
[2018-04-24] MEDS ORDERED: metFORMIN 500 MG TABLET PO SCH (08:00)
[2018-04-24] MEDS ORDERED: ASPIRIN 325 MG TABLET PO SCH (09:00)
--- NOTE | 2018-04-24 16:25 | DS ---
DATE OF DISCHARGE: 04/23/2018 HOSPITAL COURSE: The patient is a 47-year-old female patient who was originally seen at [facility] Emergency Room with weakness, slurring of speech. She also complained that she has shortness of breath. Her CT scan of the head without contrast showed no intracranial hemorrhage and a midline shift. At the recommendation of the neurologist, she was treated with tPA and was transferred to ICU as per tPA protocol. She has had CT angio of the head and neck, which showed that there is no evidence of occlusive thrombus or aneurysm identified in the visualized carotid and vertebrobasilar arterial system. She also had an MRI of the brain, which showed that no acute parenchymal abnormality is seen, and as the patient remained hemodynamically stable, afebrile, and neurologically intact, a decision was made to discharge her home to follow with her primary care physician. PHYSICAL EXAMINATION: GENERAL: On the day of discharge, the patient was sitting on the edge of the bed comfortably in no apparent respiratory distress. She was slightly pale, but no jaundice, cyanosis, or thyromegaly. No jugular venous distension. No lower limb edema. VITAL SIGNS: Her heart rate was 82, blood pressure was 127/56, temperature was 98, respiratory rate was 16, and oxygen saturation was 98% on room air. HEAD, EYES, EARS, NOSE AND THROAT: Showed normocephalic, atraumatic. NECK: Supple. HEART: Showed normal first and second heart sounds with no gallop, rub or murmur. CHEST: Clear to auscultation. No crepitation or rhonchi. ABDOMEN: Distended, soft, nontender. NEUROLOGIC: She was awake, alert, responding appropriately. All cranial nerves intact. She moves extremities without difficulty. LABORATORY DATA: Showed that her white cell count was 6700, hemoglobin 15, hematocrit 44, MCV 89 and platelet count of 196,000. Her chemistry showed a serum sodium 143, potassium 3.4, chloride 106, bicarbonate 27, anion gap of 10, BUN 6, creatinine 0.7, estimated GFR was 90 mL per minute. Her glucose was 202. Her hemoglobin A1c was high at 11. Calcium was 8.8. Total bilirubin, AST, ALT, alkaline phosphatase were normal. Total protein was 6.3, albumin was 3.3. Her serum triglycerides were high at 247, total cholesterol was 202, LDL cholesterol was 123, VLDL was 49, HDL cholesterol was 172. DISCHARGE MEDICATIONS: She was discharged home to continue on her aspirin 325 mg once a day, metformin 1000 mg once a day, atorvastatin calcium 40 mg at bedtime, Flexeril 5 mg at bedtime, trazodone 100 mg at bedtime, Lantus insulin 65 units at bedtime, prasugrel for Effient 10 mg daily with breakfast, metoprolol succinate 25 mg once a day, Wellbutrin 150 mg once a day, alprazolam 1 mg 3 times a day, oxycodone/APAP 5/325 one tablet every 6 hours. FINAL DISCHARGE DIAGNOSES: Transient ischemic attack, poorly controlled type 2 diabetes with hemoglobin A1c of 11, hypertension, coronary artery disease, thyroid nodule. JESSICA CHIRINOS MD DR: SABINA/lesvia JOB#: [id number] / [id number]
== END 2018-04-23 17:30 | disposition home or self-care (01) | DRG 63 ==
LOC: 1 WEST ICU 04:43
PROVIDERS: ADMIT Internal Medicine; ATTEND Internal Medicine
DX: G45.9 Transient cerebral ischemic attack, unspecified (principal); E04.1 Nontoxic single thyroid nodule; E11.65 Type 2 diabetes mellitus with hyperglycemia; E78.5 Hyperlipidemia, unspecified; F17.210 Nicotine dependence, cigarettes, uncomplicated; I10 Essential (primary) hypertension; I25.10 Atherosclerotic heart disease of native coronary artery without angina pectoris; F41.9 Anxiety disorder, unspecified; K58.9 Irritable bowel syndrome, unspecified; R29.705 NIHSS score 5; Z79.82 Long term (current) use of aspirin; Z80.0 Family history of malignant neoplasm of digestive organs; Z80.3 Family history of malignant neoplasm of breast; Z85.3 Personal history of malignant neoplasm of breast; Z90.13 Acquired absence of bilateral breasts and nipples; Z90.710 Acquired absence of both cervix and uterus; Z88.0 Allergy status to penicillin; I25.2 Old myocardial infarction
CPT/HCPCS: 36415; 70496; 70498; 70553; 80053; 80061; 82962; 83036; 85027; 87641; 90471; 90756; 93306; 95816; A9585; J1815; J7030; Q9967; 92610; Q2035

== ENCOUNTER 2020-12-29 09:38 | Inpatient (IN) | payer SELFPAY ==
[2020-12-29] VITALS (11 sets, daily range): BP systolic 95–119; BP diastolic 53–76
[~2020-12-29] VITALS: Ht 162.6 cm; Wt 68.2 kg
[~2020-12-29 09:38] MED LIST changes: +CLOP75TA PO; +TRAZ-123 PO; -TRAZ-86 PO
[2020-12-29] MEDS ORDERED: NITROGLYCERIN SUBLINGUAL 0.4 MG BOTTLE OF 25. SL ONE (09:43)
--- NOTE | 2020-12-29 09:46 | PHYS DOC ---
Past Medical History Past Medical History: Anxiety, CAD (W/ STENTS), Cancer, Depression, Diabetes- Type II, High Cholesterol, [place], Other Additional Past Medical Histor: STOMACH ULCERS, IBS, Past Surgical History: , Hysterectomy Additional Past Surgical Histo: OOPHARECTOMY, DOUBLE MASECTOMY X 2, Smoking Status: Current Every Day Smoker Alcohol Use: None Drug Use: None General Adult HPI: HPI: Patient is a 50 year old female with past medical history HTN, HLD, diabetes, CAD s/p stents who presents with chest pressure radiating to her left shoulder. States that it started last night before bed. Awoke at 7 AM and still had pain worse than before. Rates it /. Feels very similar to previous pain that was associated with an [place] in 2018. She is on aspirin, but she is unsure if she has missed some doses. She does have some associated nausea/vomiting, mild shortness of breath since the pain started. She is not vaccinated for Covid. Denies cough and sick contacts. Received 324 mg aspirin per EMS Review of Systems: Review of Systems: Constitutional: Denies fever or chills. [] Eyes: Denies change in visual acuity. [] HENT: Denies nasal congestion or sore throat. [] Respiratory: Denies cough. Reports shortness of breath. [] Cardiovascular: Reports chest pain. No lower extremity edema. [] GI: Reports nausea/vomiting. Denies abdominal pain or diarrhea. [] : Denies dysuria. [] Musculoskeletal: Denies back pain or joint pain. [] Integument: Denies rash. [] Neurologic: Denies headache, focal weakness or sensory changes. [] Endocrine: Denies polyuria or polydipsia. [] Lymphatic: Denies swollen glands. [] Psychiatric: Denies depression or anxiety. [] Heart Score: C/O Chest Pain: Yes HEART Score for Chest Pain: HEART Score for Chest Pain Response (Comments) Value History Highly Suspicious 2 ECG Nonspecific Repolarizatio 1 Age >45 - < 65 1 Risk Factors >3 Risk Factors or Hx CAD 2 Total 6 Risk Factors: Risk Factors: DM, Current or recent (<one month) smoker, HTN, HLP, family history of CAD, obesity. Risk Scores: Score 0 - 3: 2.5% MACE over next 6 weeks - Discharge Home Score 4 - 6: 20.3% MACE over next 6 weeks - Admit for Clinical Observation Score 7 - 10: 72.7% MACE over next 6 weeks - Early Invasive Strategies Family History: Family History: No pertinent family history gathered Current Medications: Current Medications Medications (Trade) Dose Ordered Sig/Sanjuana Start Time Stop Time Status Last Admin Dose Admin Nitroglycerin (Nitrostat) 0.4 mg STK-MED ONCE 12/29/20 09:43 12/29/20 09:43 DC Allergies: Allergies: Allergies Coded Allergies Type Severity Reaction Last Updated Verified Penicillins Allergy Intermediate 11/27/15 Yes Physical Exam: PE: Constitutional: Ill-appearing. Nontoxic. [] HENT: Normocephalic, atraumatic, [] Eyes conjunctiva normal, no discharge. [] Neck: Normal range of motion, no tenderness, supple, no stridor. [] Cardiovascular:Heart rate regular rhythm, no murmur [] Lungs & Thorax: CTA B. Bilateral breath sounds clear to auscultation [] Abdomen: Bowel sounds normal, soft, no tenderness, no masses, no pulsatile masses. [] Skin: Warm, dry, no erythema, no rash. [] Back: No tenderness, no CVA tenderness. [] Extremities: No tenderness, no cyanosis, no clubbing, ROM intact, no edema. [] Neurologic: Alert and oriented X 3, normal motor function, normal sensory function, no focal deficits noted. [] Psychologic: Affect normal, judgement normal, mood normal. [] EKG: EKG: Sinus rhythm. Rate 79. Flat/biphasic T wave in lead III. Upsloping ST segments in V3V5. No ST depressions. No STEMI.[] Radiology/Procedures: Radiology/Procedures: CXR [] Impression: [facility] [address] [place], [place] [id number] IMAGING REPORT Signed PATIENT: KENDRA MONACO ACCOUNT: [id number] : 1970 LOCATION: ER AGE: 50 SEX: F EXAM STATUS: REG ER ORD. PHYSICIAN: ALBARO WARD MD REASON: CHEST PAIN PROCEDURE: PORTABLE CHEST 1V Exam Date: 12/29/2020 9:57 AM XR CHEST 1V Indication: Reason: CHEST PAIN / Spl. Instructions: / History: . Comparison: June 12, 2017 FINDINGS/ IMPRESSION: The cardiac silhouette and pulmonary vasculature are within normal limits. There is no focal consolidation, pleural effusion or pneumothorax. The visualized osseous structures are intact. Electronically signed by: La Flores MD (12/29/2020 10:08 AM) [id number] DICTATED and SIGNED BY: LA FLORES MD DATE: 12/29/20 [id number] Course & Med Decision Making: Course & Med Decision Making Pertinent Labs and Imaging studies reviewed. (See chart for details) Patient a 50-year-old female with past medical history of HTN, HLD, DM, CAD s/p stents who presents with chest pressure radiating to her left shoulder. Has been constant since 7 AM when she awoke, but for starting last night. On arrival is afebrile and hemodynamically stable. Her EKG does not show any acute ST elevation or depressions. Received 324 mg of aspirin prehospital. Patient states her pain is extremely reminiscent of her previous [place] pain. HEART SCORE = 6 prior to troponin results, reflecting her high risk. Will require admission and serial troponins. Given NTG SL here while awaiting results. 0954 Repeat EKG unchanged. Chest pain improved from 10/10 to 4/10 w/ NTG SL. WIll apply NTG paste. 1022 Initial troponin negative. Will hold on heparin. Plan to admit. 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 1024 Dragon Disclaimer: Dragon Disclaimer: This electronic medical record was generated, in whole or in part, using a voice recognition dictation system. Departure Departure Impression: Primary Impression: Chest pain Disposition: ADMITTED INPATIENT Admitting Physician: YANE (Joce) Condition: STABLE Referrals: WANDER SANCHEZ (PCP) ALBARO WARD MD Dec 29, 2020 09:46
[2020-12-29] MEDS: NITROGLYCERIN SUBLINGUAL 0.4 MG BOTTLE OF 25. SL PRN ×3 (09:47→10:00)
--- NOTE | 2020-12-29 10:01 | EKG ---
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
[2020-12-29 10:05] LABS: BASO # 0.1 x10^3/uL (0.0-0.2); BASO % 1 % (0-3); EOS # 0.1 x10^3/uL (0.0-0.7); EOS % 2 % (0-3); HEMATOCRIT 39.4 % (36.0-47.0); LYMPH # 2.2 x10^3/uL (1.0-4.8); LYMPH % 30 % (24-48); MEAN CORPUSCULAR HEMOGLOBIN 31 pg (25-35); MEAN CORPUSCULAR HGB CONC 36 g/dL (31-37); MEAN CORPUSCULAR VOLUME 86 fL (79-100); MONO # 0.4 x10^3/uL (0.0-1.1); MONO % 6 % (0-9); NEUT # 4.4 x10^3/uL (1.8-7.7); NEUT % 62 % (31-73); PLATELET COUNT 207 x10^3/uL (140-400); RED BLOOD COUNT 4.59 x10^6/uL (3.50-5.40); RED CELL DISTRIBUTION WIDTH 13.2 % (11.5-14.5); WHITE BLOOD COUNT 7.2 x10^3/uL (4.0-11.0)
[2020-12-29] MEDS ORDERED: NITROGLYCERIN OINT 1 GM PACKET. ONE (10:10)
--- NOTE | 2020-12-29 10:10 | RAD ---
Exam Date: 12/29/2020 9:57 AM XR CHEST 1V Indication: Reason: CHEST PAIN / Spl. Instructions: / History: . Comparison: June 12, 2017 FINDINGS/ IMPRESSION: The cardiac silhouette and pulmonary vasculature are within normal limits. There is no focal consolidation, pleural effusion or pneumothorax. The visualized osseous structures are intact. Electronically signed by: Deny Flores MD (12/29/2020 10:08 AM) [id number]
[2020-12-29 10:12] LABS: CALCIUM 8.5 mg/dL (8.5-10.1); CREATININE 0.6 mg/dL (0.6-1.0); GFR 106.7; POTASSIUM 3.8 mmol/L (3.5-5.1)
[2020-12-29 10:18] LABS: ALBUMIN 3.1 g/dL (3.4-5.0); ALBUMIN/GLOBULIN RATIO 1.1 (1.0-1.7); TOTAL BILIRUBIN 0.3 mg/dL (0.2-1.0)
[2020-12-29] MEDS ORDERED: NITROGLYCERIN OINT 1 GM PACKET. TP ONE (10:45)
[2020-12-29] MEDS ORDERED: ONDANSETRON PF 4 MG/2 ML VIAL. IVP ONE (10:45)
[2020-12-29] MEDS ORDERED: NITROGLYCERIN PREMIX 250 ML IV ONE (11:15)
[2020-12-29] MEDS ORDERED: MORPHINE SULFATE 2 MG/ML INJ. IM ONE (11:15)
--- NOTE | 2020-12-29 11:33 | PDOC2 ---
KWADWO RUIZ TV PRODUCTION ASSISTANT 12/29/20 1133: CARDIAC CONSULT DATE OF CONSULT Date of Consult DATE: 12/29/20 TIME: 11:13 REASON FOR CONSULT Reason for Consult: Chest pain REFERRING PHYSICIAN Referring Physician: Boubacar SOURCE Source: Chart review, Patient HISTORY OF PRESENT ILLNESS HISTORY OF PRESENT ILLNESS This patient is a 50 year old female smoker with Type II DM, dyslipidemia, and CAD w/ stents in 2015 and 2017 presenting with chest pain. The pain started yesterday afternoon gradually while grocery shopping. She describes the pain as a constant substernal pressure with radiation to the left jaw and shoulder. The pain is constant but worse with exertion. She has had associated shortness of breath and two episodes of vomiting earlier today. She received Nitro in the ED with some relief of her discomfort. She describes her pain as similar to her prior ND. She is not aware of any family history of early cardiac disease in first degree relatives, although she has an uncle who of an ND in his 30s. Of note, her mother is currently admitted upstairs with a life threatening diagnosis which has caused her a lot of emotional distress over the last few days. Prior to the onset of symptoms she was feeling well and denies any fever, cough, abdominal pain, back pain, diarrhea, or urinary symptoms. She has not been vaccinated against COVID-19. PAST MEDICAL HISTORY Cardiovascular: CAD (stents in 2015 and 2018), CHF, HTN, Hyperlipidemia CENTRAL NERVOUS SYSTEM: Other (No pertinent history) GI: No pertinent hx Heme/Onc: Cancer (breast cancer) Psych: Anxiety Rheumatologic: No pertinent hx Infectious disease: No pertinent hx ENT: No pertinent hx Renal/: No pertinent hx Endocrine: Diabetes Dermatology: No pertinent hx PAST SURGICAL HISTORY Past Surgical History: , Mastectomy (b/l), Hysterectomy (and oop horectomy), Other (PCI) FAMILY HISTORY Family History: Coronary Artery Disease (in uncle, unknown in 1st degree relatives) SOCIAL HISTORY Smoke: 1 pack per day ALCOHOL: occassional Drugs: None Lives: with Family CURRENT MEDICATIONS CURRENT MEDICATIONS Current Medications Medications (Trade) Dose Ordered Sig/Sanjuana Route PRN Reason Start Time Stop Time Status Last Admin Dose Admin Nitroglycerin (Nitrostat) 0.4 mg PRN Q5MIN PRN SL CP RATING > /10 12/29/20 09:45 12/30/20 09:44 12/29/20 10:00 Nitroglycerin (Nitro-Bid Oint) 1 inch 1X ONCE TP 12/29/20 10:45 12/29/20 10:46 DC 12/29/20 10:12 Ondansetron HCl (Zofran) 4 mg 1X ONCE IVP 12/29/20 10:45 12/29/20 10:46 DC 12/29/20 10:13 ALLERGIES ALLERGIES: Coded Allergies: Penicillins (Verified Allergy, Intermediate, 11/27/15) ROS Respiratory: YES: SOB with excertion Cardiovascular: yes Chest Pain Gastrointestinal: Yes Nausea, Yes Vomiting PHYSICAL EXAM General: Alert, Oriented X3, Cooperative HEENT: Atraumatic, PERRLA Lungs: Clear to auscultation Heart: Regular rate, Normal S1, Normal S2, No murmurs Abdomen: Soft, No tenderness, No masses Extremities: No cyanosis, No edema, Normal pulses, No tenderness/swelling Skin: No rashes, No significant lesion Neuro: Normal speech, Strength at 5/5 X4 ext, Normal tone, Sensation intact Psych/Mental Status: Mental status NL, Mood NL MUSCULOSKELETAL: No deformity, No swelling, No muscular tenderness noted, Full range of motion without pain VITALS/I&O VITALS/I&O: Vital Signs Date Time Temp Pulse Resp B/P (MAP) Pulse Ox O2 Delivery O2 Flow Rate FiO2 12/29/20 10:12 70 109/58 12/29/20 09:38 98.6 21 99 Room Air 98.6 LABS Lab: Laboratory Tests Test 12/29/20 09:50 White Blood Count 7.2 x10^3/uL (4.0-11.0) Red Blood Count 4.59 x10^6/uL (3.50-5.40) Hemoglobin 14.0 g/dL (12.0-15.5) Hematocrit 39.4 % (36.0-47.0) Mean Corpuscular Volume 86 fL (79-100) Mean Corpuscular Hemoglobin 31 pg (25-35) Mean Corpuscular Hemoglobin Concent 36 g/dL (31-37) Red Cell Distribution Width 13.2 % (11.5-14.5) Platelet Count 207 x10^3/uL (140-400) Neutrophils (%) (Auto) 62 % (31-73) Lymphocytes (%) (Auto) 30 % (24-48) Monocytes (%) (Auto) 6 % (0-9) Eosinophils (%) (Auto) 2 % (0-3) Basophils (%) (Auto) 1 % (0-3) Neutrophils # (Auto) 4.4 x10^3/uL (1.8-7.7) Lymphocytes # (Auto) 2.2 x10^3/uL (1.0-4.8) Monocytes # (Auto) 0.4 x10^3/uL (0.0-1.1) Eosinophils # (Auto) 0.1 x10^3/uL (0.0-0.7) Basophils # (Auto) 0.1 x10^3/uL (0.0-0.2) Sodium Level 138 mmol/L (136-145) Potassium Level 3.8 mmol/L (3.5-5.1) Chloride Level 104 mmol/L (98-107) Carbon Dioxide Level 27 mmol/L (21-32) Anion Gap 7 (6-14) Blood Urea Nitrogen 11 mg/dL (7-20) Creatinine 0.6 mg/dL (0.6-1.0) Estimated GFR (Cockcroft-Gault) 106.7 BUN/Creatinine Ratio 18 (6-20) Glucose Level 259 mg/dL (70-99) H Calcium Level 8.5 mg/dL (8.5-10.1) Total Bilirubin 0.3 mg/dL (0.2-1.0) Aspartate Amino Transferase (AST) 10 U/L (15-37) L Alanine Aminotransferase (ALT) 14 U/L (14-59) Alkaline Phosphatase 114 U/L (46-116) Troponin I Quantitative < 0.017 ng/mL (0.000-0.055) Total Protein 6.0 g/dL (6.4-8.2) L Albumin 3.1 g/dL (3.4-5.0) L Albumin/Globulin Ratio 1.1 (1.0-1.7) Laboratory Tests 12/29/20 09:50 Laboratory Tests 12/29/20 09:50 ECHOCARDIOGRAM ECHOCARDIOGRAM <Conclusion> The left ventricular systolic function is normal and the ejection fraction is within normal range. The Ejection Fraction is >55%. There is normal LV segmental wall motion. The interatrial septum is intact with no evidence for an atrial septal defect or patent foramen ovale as noted on 2-D or Doppler imaging. Agitated saline study was suboptimal but no clear evidence of atrial level shunt. DATE: 04/23/18 1539 HEART CATH HEART CATH Conclusion 1. Elevated left ventricular filling pressure. 2. Normal LV systolic function. Ef 65% 3. One vessel CAD 4. Successful PCI of the proximal LAD with implantation of a Integrity 3.5/22 BMS, post-dilated with a 3.75mm balloon proximally to a 4.0 mm stent. 5. Successful RCFA arteriotomy closure with a Mynx Solis device. Recommendations Smoking Cessation Cardiac Rehabilitation Referral Aggressive Medical Therapy Cilostazol 100mg bid (Due to aspirin allergy) Prasugrel 10mg daily for 1 full month (will provide 1 month free card as she does not have insurance). Then plavix 75mg daily indefinitely thereafter. DATE: 09/03/15 1857 ASSESSMENT/PLAN ASSESSMENT/PLAN 1. Chest pain: UA features 2. CAD: past stent 3. HLP 4. DM2: uncontrolled 5. Anxiety: mother currently has terminal CA 6. Tobaccoism Recommendations 1. Morphine x1. Start NTG drip if BP allows. ASA received en route and unclear if truly allergic 2. Trend trop. Will obtain TTE 3. [facility] today, risks and benefits discussed and agreeable to proceed. 4. Smoking cessation 5. Covid-19 swab, she is not vaccinated SAIGE TOWNSEND MD 12/29/20 1422: CARDIAC CONSULT ASSESSMENT/PLAN ASSESSMENT/PLAN Patient seen and examined. Agree with SUPER[employer]OR [employer]'s assessment and plan. Patient with known history of coronary artery disease s/p PCI/stent placement to LAD presented with chest pain concerning for unstable angina. Initial troponin level negative. EKG without acute changes. Plan for cardiac catheterization and possible angioplasty. Risks and benefits were explained and she is agreeable. Thank you for your consultation KWADWO RUIZ APRN Dec 29, 2020 11:33 SAIGE TOWNSEND MD Dec 29, 2020 14:22
[2020-12-29] MEDS ORDERED: fentaNYL PF VIAL 100 MCG/2 ML VIAL ONE (12:13)
[2020-12-29] MEDS ORDERED: MIDAZOLAM HCL/PF 2 MG/2 ML VIAL. ONE (12:13)
[2020-12-29] MEDS ORDERED: NITROGLYCERIN 200 MCG/2 ML SYRINGE FOR CATH/VASC LAB. ONE (12:13)
[2020-12-29] MEDS ORDERED: VERAPAMIL 5 MG/2 ML VIAL. ONE (12:13)
[2020-12-29] MEDS ORDERED: HEPARIN for IV BOLUS 10,000 UNIT/10 ML VIAL. ONE (12:13)
[2020-12-29] MEDS ORDERED: LIDOCAINE 1% PF 2 ML VIAL. ONE (12:17)
[2020-12-29] MEDS ORDERED: IOHEXOL 300 MG/ML 100ML VIAL. ONE (12:17)
[2020-12-29] MEDS ORDERED: IOHEXOL 300 MG/ML 100ML VIAL. IART ONE (12:30)
[2020-12-29] MEDS ORDERED: VERAPAMIL 5 MG/2 ML VIAL. IART ONE (12:30)
[2020-12-29] MEDS ORDERED: CONTRAST GIVEN. MC PRN (12:30)
[2020-12-29] MEDS ORDERED: NITROGLYCERIN 200 MCG/2 ML SYRINGE FOR CATH/VASC LAB. IART ONE (12:30)
[2020-12-29] MEDS ORDERED: MIDAZOLAM HCL/PF 2 MG/2 ML VIAL. IV ONE (12:30)
[2020-12-29] MEDS ORDERED: HEPARIN for IV BOLUS 10,000 UNIT/10 ML VIAL. IART ONE (12:30)
[2020-12-29] MEDS ORDERED: fentaNYL PF VIAL 100 MCG/2 ML VIAL IV ONE (12:30)
[2020-12-29] MEDS ORDERED: LIDOCAINE 1% PF 2 ML VIAL. INJ ONE (12:30)
--- NOTE | 2020-12-29 14:24 | PDOC ---
MODERATE SEDATION ASSESSMENT RISKS/ALTERNATIVES Risks/Alternatives Risks and alternatives of this type of sedation and procedure discussed with: RISK/ALTERNATIVES: Patient H & P ON CHART H & P H & P on chart and reviewed for co-morbid conditions and appropriate labs. H&P ON CHART: Yes STATUS PREG STATUS ASSESSED: N/A MEDS/ALLERGIES REVIEWED Meds/Allergies Reviewed Medications and Allergies including time and route of recently administered narcotics and sedatives. MEDS/ALLERGIES REVIEWED: Yes ASA RATING ASA RATING: II AIRWAY ASSESSMENT Airway Assessment Airway patency, oral function limitations, presence of caps, crowns, dentures, partials, and ability to extend neck assessed. AIRWAY ASSESSMENT: Yes MALLAMPATI SCORE MALLAMPATI SCORE: II PRE-SEDATION ASSESSMENT PRE-SEDATION ASSESSMENT: Yes SAIGE TOWNSEND MD Dec 29, 2020 14:24
[2020-12-29] MEDS ORDERED: 0.9 % SODIUM CHLORIDE 10 ML DISP.SYRIN. IV PRN (14:30)
[2020-12-29] MEDS ORDERED: IV 1/2 NORMAL SALINE 1,000 ML IV SCH (14:30)
[2020-12-29] MEDS ORDERED: ACETAMINOPHEN 325 MG TABLET. PO PRN ×2 (14:30→16:15)
--- NOTE | 2020-12-29 15:01 | CARD ---
MR#: [id number] Date of Study: 12/29/2020 Ordering Physician: KWADWO RUIZ, Referring Physician: KWADWO RUIZ, Tech: RT Arlene(R) APPROVED REPORT Technologist: RT Arlene(R) Nurse: Elizabeth Remy RN Procedure(s) performed: Left heart catheterization, selective coronary angiography and left ventricul ography via right transradial approach CONTRAST 102ML FLUORO TIME 2.9 MIN DOSE 25.30UCPB2 SEDATION TIME 30MIN. INDICATION The indication(s) include : unstable angina . [facility] Clinical Frailty Scale [facility] Clinical Frailty Scale: Mildly Frail Heart Failure Heart Failure: No CASE TECHNIQUE IV conscious sedation was used throughout procedure with appropriate monitoring and was performed in the presence of a registered nurse who was an independent trained observer other than the physician p erforming the procedure. During this case, Fluoroscopy and low osmolar contrast were used for imaging . Specimen(s) Removed: No Estimated Blood loss: 15 cc's. PROCEDURE NARRATIVE After explaining the risks, benefits and alternative options, informed consent was obtained from rosa ent. Patient was brought to the cardiac Cell Stripper and right wrist was prepped and draped in the usual fashion after confirming a positive modified Chris's test. Arterial access was obtained in the righ t radial artery and a 6 [place]an sheath was inserted. 6 [place] Seb catheter was used to perform julienne ective angiography of the left and right coronary arteries. 6 [place] pigtail catheter was used to pe rform left ventriculography. Patient tolerated the procedure well. Hemostasis was achieved using TR band. There were no immediate complications. The following findings were noted. FINDINGS 1. Hemodynamics: Left ventricular end-diastolic pressure of 14 mmHg. No pullback gradient across th e aortic valve. 2. Left ventriculography: Hyperdynamic left ventricular systolic function with ejection fraction est imated at 75 to 80%. No significant mitral regurgitation seen. 3. Coronary angiography: a. The left main coronary artery arose from the left sinus of Valsalva, gave rise to the left anteri or descending and left circumflex arteries and showed 20% stenosis involving the ostial segment. b. The left anterior descending artery showed widely patent previously placed stent in the proximal to mid segment. The diagonal branch showed 40% proximal segment stenosis. c. The left circumflex artery did not show any significant stenosis. d. The right coronary artery was a large and dominant vessel arising from the right sinus of Valsalv a that showed 30% stenosis in the proximal segment. Conclusion 1. Widely patent previously placed stent in the left anterior descending artery. No lesions needing intervention were noted. 2. Hyperdynamic left ventricular systolic function with ejection fraction estimated at 75 to 80%. Recommendations Medical Therapy Signed by : Elvin Teixeira, Electronically Approved : 12/29/2020 15:00:51
[2020-12-29] MEDS ORDERED: DOCUSATE SODIUM 100 MG CAPSULE. PO PRN (16:15)
[2020-12-29] MEDS ORDERED: PROCHLORPERAZINE 10 MG/2 ML VIAL. IV PRN (16:15)
[2020-12-29] MEDS ORDERED: MORPHINE SULFATE 2 MG/ML INJ. IVP PRN (16:15)
[2020-12-29] MEDS ORDERED: MORPHINE SULFATE 2 MG/ML INJ. IV PRN (16:15)
[2020-12-29] MEDS ORDERED: DEXTROSE 50% 25 GM / 50ML DISP.SYRIN. IV PRN (16:15)
[2020-12-29] MEDS ORDERED: ONDANSETRON PF 4 MG/2 ML VIAL. IVP PRN (16:15)
[2020-12-29] MEDS ORDERED: SENNOSIDES 8.6 MG TABLET PO PRN (16:15)
[2020-12-29] MEDS ORDERED: NITROGLYCERIN SUBLINGUAL 0.4 MG BOTTLE OF 25. SL PRN (16:15)
[2020-12-29] MEDS ORDERED: TRAZ-123 PO (16:21)
[2020-12-29] MEDS ORDERED: ALPR1TAB6 PO (16:21)
[2020-12-29] MEDS ORDERED: CLOP75TA PO (16:21)
[2020-12-29] MEDS ORDERED: OXYC5TAB2 PO (16:21)
[2020-12-29] MEDS ORDERED: FLUO10CA15 PO (16:21)
--- NOTE | 2020-12-29 16:27 | PDOC1 ---
History and Physical Date of Service: DOS: DATE: 12/29/20 TIME: 16:21 Chief Complaint: Chief Complain: Chest pain History of Present Illness: HPI: Patient is a 50-year-old female with past medical history of diabetes mellitus type 2, dyslipidemia and CAD with 2 stents in 2015 and 2018 who comes with chest pressure that is radiating to her left shoulder that started last night during rest. Patient did wake up this morning at 7:00 in the morning and noticed that the pain is worse than before, 10 out of 10 and was similar to a presentation that resulted in myocardial infarction in 2018. Patient endorses some nausea and vomiting and may have missed some doses of her medication. She has associated shortness of breath. Nitroglycerin in the emergency department did relieve her pain. Family history is positive for uncle who of an [place] in his early 30s. Patient also has been having increasing stress because of her mother who has terminal cancer and is actually admitted to the hospital. She has more stress from that apparently. Denies fevers, cough, abdominal pain, diarrhea, dysuria or bloody stools. Patient is not vaccinated for Covid. Due to the patient's high risk patient was taken by Dr. Yousuf Cintron to the [facility]. Coronary artery disease revealed patent stents in the LAD. EF was normal. No interventions were done during the catheterization. Past Medical/Surgical History: PMH/PSH: Past Medical History: Anxiety, CAD (W/ STENTS), Cancer, Depression, Diabetes- Type II, High Cholesterol, LA, STOMACH ULCERS, IBS, Past Surgical History: , Hysterectomy, OOPHARECTOMY, DOUBLE MASECTOMY X 2, Allergies: Allergies: Coded Allergies: Penicillins (Verified Allergy, Intermediate, 11/27/15) Family History: Family History: Reviewed with no relevant findings Social History: Social History: Smoking Status: Current Every Day Smoker Alcohol Use: None Drug Use: None Current Medications: Current Medications Current Medications Nitroglycerin (Nitrostat) 0.4 mg STK-MED ONCE SL ; Start 12/29/20 at 09:43; Stop 12/29/20 at 09:43; Status DC Nitroglycerin (Nitrostat) 0.4 mg PRN Q5MIN PRN SL CP RATING > 1/10 Last administered on 12/29/20at 10:00; Start 12/29/20 at 09:45; Stop 12/29/20 at 16:19; Status DC Nitroglycerin (Nitro-Bid Oint) 1 inch 1X ONCE TP Last administered on 12/29/20at 10:12; Start 12/29/20 at 10:45; Stop 12/29/20 at 10:46; Status DC Ondansetron HCl (Zofran) 4 mg 1X ONCE IVP Last administered on 12/29/20at 10:13; Start 12/29/20 at 10:45; Stop 12/29/20 at 10:46; Status DC Nitroglycerin (Nitro-Bid Oint) 1 inch STK-MED ONCE .ROUTE ; Start 12/29/20 at 10:10; Stop 12/29/20 at 10:10; Status DC Nitroglycerin/ Dextrose 250 ml @ 0 mls/hr 1X ONCE IV Last administered on 12/29/20at 11:25; Start 12/29/20 at 11:15; Stop 12/29/20 at 11:16; Status DC Morphine Sulfate (Morphine Sulfate) 2 mg 1X ONCE IM Last administered on 12/29/20at 11:26; Start 12/29/20 at 11:15; Stop 12/29/20 at 11:16; Status DC Fentanyl Citrate (Fentanyl 2ml Vial) 100 mcg STK-MED ONCE .ROUTE ; Start 12/29/20 at 12:13; Stop 12/29/20 at 12:13; Status DC Midazolam HCl (Versed) 2 mg STK-MED ONCE .ROUTE ; Start 12/29/20 at 12:13; Stop 12/29/20 at 12:13; Status DC Heparin Sodium (Porcine) (Heparin Sodium) 10,000 unit STK-MED ONCE .ROUTE ; Start 12/29/20 at 12:13; Stop 12/29/20 at 12:13; Status DC Verapamil HCl (Verapamil) 5 mg STK-MED ONCE .ROUTE ; Start 12/29/20 at 12:13; Stop 12/29/20 at 12:13; Status DC Nitroglycerin (Nitroglycerin) 200 mcg STK-MED ONCE .ROUTE ; Start 12/29/20 at 12:13; Stop 12/29/20 at 12:14; Status DC Lidocaine HCl (Xylocaine-Mpf 1% 2ml Vial) 2 ml STK-MED ONCE .ROUTE ; Start 12/29/20 at 12:17; Stop 12/29/20 at 12:18; Status DC Iohexol (Omnipaque 300 Mg/ml) 100 ml STK-MED ONCE .ROUTE ; Start 12/29/20 at 12:17; Stop 12/29/20 at 12:18; Status DC Heparin Sodium/ Sodium Chloride 1,000 ml @ As Directed STK-MED ONCE .ROUTE ; Start 12/29/20 at 12:18; Stop 12/29/20 at 12:18; Status DC Nitroglycerin (Nitroglycerin) 200 mcg 1X ONCE IART Last administered on 12/29/20 13:31; Start 12/29/20 at 12:30; Stop 12/29/20 at 12:31; Status DC Verapamil HCl (Verapamil) 2.5 mg 1X ONCE IART Last administered on 12/29/20 13:31; Start 12/29/20 at 12:30; Stop 12/29/20 at 12:31; Status DC Heparin Sodium (Porcine) (Heparin Sodium) 2,500 unit 1X ONCE IART Last administered on 12/29/20at 13:31; Start 12/29/20 at 12:30; Stop 12/29/20 at 12:31; Status DC Heparin Sodium/ Sodium Chloride (HEPARIN for ARTERIAL LINE FLUSH) 1,000 unit 1X ONCE IART Last administered on 12/29/20at 12:30; Start 12/29/20 at 12:30; Stop 12/29/20 at 12:31; Status DC Heparin Sodium/ Sodium Chloride (HEPARIN for ARTERIAL LINE FLUSH) 1,000 unit 1X ONCE IART Last administered on 12/29/20at 12:30; Start 12/29/20 at 12:30; Stop 12/29/20 at 12:31; Status DC Midazolam HCl (Versed) 2 mg 1X ONCE IV Last administered on 12/29/20 13:28; Start 12/29/20 at 12:30; Stop 12/29/20 at 12:31; Status DC Fentanyl Citrate (Fentanyl 2ml Vial) 100 mcg 1X ONCE IV Last administered on 12/29/20 13:28; Start 12/29/20 at 12:30; Stop 12/29/20 at 12:31; Status DC Iohexol (Omnipaque 300 Mg/ml) 100 ml 1X ONCE IART Last administered on 12/29/20at 13:42; Start 12/29/20 at 12:30; Stop 12/29/20 at 12:31; Status DC Lidocaine HCl (Xylocaine-Mpf 1% 2ml Vial) 2 ml 1X ONCE INJ Last administered on 12/29/20at 13:30; Start 12/29/20 at 12:30; Stop 12/29/20 at 12:31; Status DC Info (CONTRAST GIVEN -- Rx MONITORING) 1 each PRN DAILY PRN MC SEE COMMENTS; Start 12/29/20 at 12:30; Stop 12/31/20 at 12:29 Sodium Chloride (Normal Saline Flush) 3 ml QSHIFT PRN IV AFTER MEDS AND BLOOD DRAWS; Start 12/29/20 at 14:30 Sodium Chloride 1,000 ml @ 75 mls/hr [id number] IV ; Start 12/29/20 at 14:30 Acetaminophen (Tylenol) 650 mg PRN Q6HRS PRN PO MILD PAIN / TEMP > 100.3'F; Start 12/29/20 at 14:30 Nitroglycerin (Nitrostat) 0.4 mg PRN Q5MIN PRN SL CHEST PAIN; Start 12/29/20 at 16:15 Sennosides (Senna) 17.2 mg PRN BID PRN PO CONSTIPATION; Start 12/29/20 at 16:15 Docusate Sodium (Colace) 100 mg PRN DAILY PRN PO HARD STOOLS; Start 12/29/20 at 16:15 Ondansetron HCl (Zofran) 4 mg PRN Q6HRS PRN IVP NAUSEA/VOMITING (1st Choice); Start 12/29/20 at 16:15 Insulin Human Lispro (HumaLOG) 0-7 UNITS TIDWMEALS SQ ; Start 12/29/20 at 17:00 Dextrose (Dextrose 50%-Water Syringe) 12.5 gm PRN Q15MIN PRN IV SEE COMMENTS; Start 12/29/20 at 16:15 Acetaminophen (Tylenol) 650 mg PRN Q4HRS PRN PO TEMP OVER 100.4F OR MILD PAIN; Start 12/29/20 at 16:15 Enoxaparin Sodium (Lovenox 40mg Syringe) 40 mg Q24H SQ ; Start 12/29/20 at 17:00 Morphine Sulfate (Morphine Sulfate) 1 mg PRN Q1HR PRN IV PAIN-SEE COMMENTS; Start 12/29/20 at 16:15 Morphine Sulfate (Morphine Sulfate) 2 mg PRN Q2HR PRN IVP SEVERE PAIN 7-10; Start 12/29/20 at 16:15; Stop 12/30/20 at 16:14 Prochlorperazine Edisylate (Compazine) 10 mg PRN Q6HRS PRN IV NAUSEA/VOMITING (2nd Choice); Start 12/29/20 at 16:15 Active Scripts Active Effient (Prasugrel Hcl) 10 Mg Tablet 1 Tab PO DAILY Metoprolol Succinate ( Xl ) (Metoprolol Succinate) 25 Mg Tab.er.24h 1 Tab PO DAILY Reported Clopidogrel (Clopidogrel Bisulfate) 75 Mg Tablet 1 Tab PO DAILY Levemir (Insulin Detemir) 100 Unit/1 Ml Vial 45 Unit SQ QHS Oxycodone-Acetaminophen 5-325 (Oxycodone Hcl/Acetaminophen) 1 Each Tablet 1 Each PO PRN Q6HRS PRN Aspir-Low (Aspirin) 81 Mg Tablet.dr 1 Tab PO DAILY Lovastatin 10 Mg Tablet 10 Mg PO HS Alprazolam 1 Mg Tablet 1 Tab PO TID Cyclobenzaprine Hcl 5 Mg Tablet 1 Tab PO QHS Metformin Hcl Er (Metformin Hcl) 1,000 Mg Tab.er.24 1,000 Mg PO BID Bupropion Hcl 100 Mg Tablet 150 Mg PO DAILY Trazodone Hcl 100 Mg Tablet 1 Tab PO QHS ROS: Review of Systems Review of System REVIEW OF SYSTEMS: GENERAL: Denies weakness SKIN: No bruising, hair changes or rashes. EYES: No blurred, double or loss of vision. NOSE AND THROAT: No history of nosebleeds, hoarseness or sore throat. HEART: No history of palpitations, chest pain or shortness of breath on exertion. LUNGS: Denies cough, hemoptysis, wheezing or shortness of breath. GASTROINTESTINAL: Denies changes in appetite, nausea, vomiting, diarrhea or constipation. GENITOURINARY: No history of frequency, urgency, hesitancy or nocturia. NEUROLOGIC: Denies history of numbness, tingling, or tremor. PSYCHIATRIC: No history of panic, anxiety or depression. ENDOCRINE: No history of heat or cold intolerance, polyuria or polydipsia. EXTREMITIES: Denies joint pain, pain on walking or stiffness. Physical Exam: Vital Signs: Vital Signs Date Time Temp Pulse Resp B/P (MAP) Pulse Ox O2 Delivery O2 Flow Rate FiO2 12/29/20 14:30 81 16 104/58 (73) 97 Room Air 12/29/20 13:51 2.0 12/29/20 09:38 98.6 98.6 Physcial Exam: GEN: No apparent distress. Alert and oriented HEENT: Normal cephalic, atraumatic, external auditory canals are patent EYES: Extraocular muscles are intact, pupil are equally round and reactive to light and accommodation MUSCULOSKELETAL: Well developed , well nourished, good range of motion ENDOCRINE: No thyromegaly was palpated LYMPHATICS: No cervical chain or axillary nodes were noted HEMATOPOIETIC: No bruising NECK: Supple, no JVD, no thyromegaly was noted LUNGS: Clear to auscultation in all lung mosley without rhonchi or wheezing HEART: RRR, S!, S2 present. Peripheral pulses intact, no obvious murmurs noted ABDOMEN: Soft, nontender. Positive bowel sounds, no organomegaly, normal bowel sounds EXTREMITIES: Without clubbing, cyanosis, or edema. Pedal pulses intact. Negative Homans sign NEUROLOGIC: Normal speech and tone. A&O x 3, moves all extremities, no obvious focal deficits PSYCHIATRIC: Normal affect, normal mood. Stable SKIN: No ulcerations or rashes, good skin turgor, no jaundice VASCULAR: Good capillary refill, neurovascular bundle appears to be intact Labs: Labs: Laboratory Tests Test 12/29/20 09:50 12/29/20 11:08 12/29/20 12:47 White Blood Count 7.2 x10^3/uL (4.0-11.0) Red Blood Count 4.59 x10^6/uL (3.50-5.40) Hemoglobin 14.0 g/dL (12.0-15.5) Hematocrit 39.4 % (36.0-47.0) Mean Corpuscular Volume 86 fL (79-100) Mean Corpuscular Hemoglobin 31 pg (25-35) Mean Corpuscular Hemoglobin Concent 36 g/dL (31-37) Red Cell Distribution Width 13.2 % (11.5-14.5) Platelet Count 207 x10^3/uL (140-400) Neutrophils (%) (Auto) 62 % (31-73) Lymphocytes (%) (Auto) 30 % (24-48) Monocytes (%) (Auto) 6 % (0-9) Eosinophils (%) (Auto) 2 % (0-3) Basophils (%) (Auto) 1 % (0-3) Neutrophils # (Auto) 4.4 x10^3/uL (1.8-7.7) Lymphocytes # (Auto) 2.2 x10^3/uL (1.0-4.8) Monocytes # (Auto) 0.4 x10^3/uL (0.0-1.1) Eosinophils # (Auto) 0.1 x10^3/uL (0.0-0.7) Basophils # (Auto) 0.1 x10^3/uL (0.0-0.2) Sodium Level 138 mmol/L (136-145) Potassium Level 3.8 mmol/L (3.5-5.1) Chloride Level 104 mmol/L (98-107) Carbon Dioxide Level 27 mmol/L (21-32) Anion Gap 7 (6-14) Blood Urea Nitrogen 11 mg/dL (7-20) Creatinine 0.6 mg/dL (0.6-1.0) Estimated GFR (Cockcroft-Gault) 106.7 BUN/Creatinine Ratio 18 (6-20) Glucose Level 259 mg/dL (70-99) Calcium Level 8.5 mg/dL (8.5-10.1) Total Bilirubin 0.3 mg/dL (0.2-1.0) Aspartate Amino Transf (AST/SGOT) 10 U/L (15-37) Alanine Aminotransferase (ALT/SGPT) 14 U/L (14-59) Alkaline Phosphatase 114 U/L (46-116) Troponin I Quantitative < 0.017 ng/mL (0.000-0.055) < 0.017 ng/mL (0.000-0.055) Total Protein 6.0 g/dL (6.4-8.2) Albumin 3.1 g/dL (3.4-5.0) Albumin/Globulin Ratio 1.1 (1.0-1.7) SARS-CoV-2 Antigen (Rapid) Negative (NEGATIVE) Laboratory Tests Test 12/29/20 09:50 12/29/20 11:08 12/29/20 12:47 White Blood Count 7.2 x10^3/uL (4.0-11.0) Red Blood Count 4.59 x10^6/uL (3.50-5.40) Hemoglobin 14.0 g/dL (12.0-15.5) Hematocrit 39.4 % (36.0-47.0) Mean Corpuscular Volume 86 fL (79-100) Mean Corpuscular Hemoglobin 31 pg (25-35) Mean Corpuscular Hemoglobin Concent 36 g/dL (31-37) Red Cell Distribution Width 13.2 % (11.5-14.5) Platelet Count 207 x10^3/uL (140-400) Neutrophils (%) (Auto) 62 % (31-73) Lymphocytes (%) (Auto) 30 % (24-48) Monocytes (%) (Auto) 6 % (0-9) Eosinophils (%) (Auto) 2 % (0-3) Basophils (%) (Auto) 1 % (0-3) Neutrophils # (Auto) 4.4 x10^3/uL (1.8-7.7) Lymphocytes # (Auto) 2.2 x10^3/uL (1.0-4.8) Monocytes # (Auto) 0.4 x10^3/uL (0.0-1.1) Eosinophils # (Auto) 0.1 x10^3/uL (0.0-0.7) Basophils # (Auto) 0.1 x10^3/uL (0.0-0.2) Sodium Level 138 mmol/L (136-145) Potassium Level 3.8 mmol/L (3.5-5.1) Chloride Level 104 mmol/L (98-107) Carbon Dioxide Level 27 mmol/L (21-32) Anion Gap 7 (6-14) Blood Urea Nitrogen 11 mg/dL (7-20) Creatinine 0.6 mg/dL (0.6-1.0) Estimated GFR (Cockcroft-Gault) 106.7 BUN/Creatinine Ratio 18 (6-20) Glucose Level 259 mg/dL (70-99) Calcium Level 8.5 mg/dL (8.5-10.1) Total Bilirubin 0.3 mg/dL (0.2-1.0) Aspartate Amino Transf (AST/SGOT) 10 U/L (15-37) Alanine Aminotransferase (ALT/SGPT) 14 U/L (14-59) Alkaline Phosphatase 114 U/L (46-116) Troponin I Quantitative < 0.017 ng/mL (0.000-0.055) < 0.017 ng/mL (0.000-0.055) Total Protein 6.0 g/dL (6.4-8.2) Albumin 3.1 g/dL (3.4-5.0) Albumin/Globulin Ratio 1.1 (1.0-1.7) SARS-CoV-2 Antigen (Rapid) Negative (NEGATIVE) Images: Images PROCEDURE: PORTABLE CHEST 1V IMPRESSION: The cardiac silhouette and pulmonary vasculature are within normal limits. There is no focal consolidation, pleural effusion or pneumothorax. The visualized osseous structures are intact. Assessment/Plan Assessment/Plan Chest pain concerning for unstable angina/NSTEMI Hyperglycemia Under protein malnutrition Bacot misuse History of CAD with stents History of diabetes mellitus type 2 History of depression History of PUD Admit to hospitalist service for observation EKG showing Troponin negative x2 Continue aspirin, Cardiology consulted for further goal-directed management for her heart disease. Continue nitroglycerin as needed for pain Continue beta-jey if blood pressures allow Continue high intensity statins IV morphine as needed Consider Lovenox Maintain O2 sats between 88 to 95% Trend troponins Repeat EKG in the a.m. Continue telemetry monitoring Monitor for electrolyte abnormalities Avoid NSAIDs Smoking cessation: Total time spent was 12 minutes in face to face counseling. Patient has agreed to consider nicotine patches/gum or to start on Varnicline when discharged Justifications for Admission Other Justification Chest pain ADAL KU MD Dec 29, 2020 16:27
[2020-12-29] MEDS ORDERED: ENOXAPARIN 40 MG/0.4 ML SYRINGE. SQ SCH (17:00)
[2020-12-29] MEDS: oxyCODONE/APAP 5/325 1 TAB TABLET PO PRN ×2 (17:04→23:48)
[2020-12-29] MEDS: INSULIN LISPRO 300 UNITS/3 ML VIAL. SQ SCH (18:39)
[2020-12-29] MEDS ORDERED: ATORVASTATIN CALCIUM 10 MG TABLET. PO SCH (21:00)
[2020-12-29] MEDS ORDERED: CYCLOBENZAPRINE 10 MG TABLET. PO SCH (21:00)
[2020-12-29] MEDS ORDERED: INSULIN GLARGINE SYRINGE. SQ SCH (21:00)
[2020-12-29] MEDS ORDERED: traZODone 100 MG TABLET. PO SCH (21:00)
[2020-12-29] MEDS: ALPRAZolam 1 MG TABLET PO PRN (21:35)
[2020-12-30 03:00] VITALS: BP_SYST 100; BP_SYST 87; BP_DIAS 52; BP_DIAS 65
[2020-12-30 05:05] LABS: BASO % 1 % (0-3); EOS # 0.1 x10^3/uL (0.0-0.7); EOS % 2 % (0-3); HEMATOCRIT 35.9 % (36.0-47.0); HEMOGLOBIN 12.3 g/dL (12.0-15.5); LYMPH # 2.8 x10^3/uL (1.0-4.8); LYMPH % 46 % (24-48); MEAN CORPUSCULAR HEMOGLOBIN 30 pg (25-35); MEAN CORPUSCULAR HGB CONC 34 g/dL (31-37); MEAN CORPUSCULAR VOLUME 88 fL (79-100); MONO # 0.4 x10^3/uL (0.0-1.1); MONO % 6 % (0-9); NEUT # 2.8 x10^3/uL (1.8-7.7); NEUT % 46 % (31-73); PLATELET COUNT 178 x10^3/uL (140-400); RED CELL DISTRIBUTION WIDTH 13.6 % (11.5-14.5); WHITE BLOOD COUNT 6.2 x10^3/uL (4.0-11.0)
[2020-12-30 05:24] LABS: CALCIUM 8.2 mg/dL (8.5-10.1); CREATININE 0.7 mg/dL (0.6-1.0); GFR 89.3; PHOSPHORUS 4.4 mg/dL (2.6-4.7); POTASSIUM 3.7 mmol/L (3.5-5.1)
[2020-12-30 07:00] VITALS: BP 110/75
[2020-12-30] MEDS ORDERED: METOPROLOL SUCC 24HR ER 25 MG TAB.ER.24H. PO SCH (09:00)
[2020-12-30] MEDS ORDERED: FLUoxetine HCL 10 MG CAPSULE PO SCH (09:00)
[2020-12-30] MEDS ORDERED: ASPIRIN ENTERIC COATED 81 MG TABLET.DR. PO SCH (09:00)
[2020-12-30] MEDS ORDERED: buPROPion XL 150 MG TAB.ER.24H. PO SCH (09:00)
[2020-12-30] MEDS: oxyCODONE/APAP 5/325 1 TAB TABLET PO PRN (09:19)
--- NOTE | 2020-12-30 09:21 | PDOC ---
[employer] PROGRESS NOTE Date of Service DOS: DATE: 12/30/20 TIME: 09:15 Chief Complaint Chief Complaint Chest Pain Anxiety CAD (W/ STENTS) Cancer Depression Diabetes-Type II High Cholesterol [place] STOMACH ULCERS IBS History of Present Illness History of Present Illness Patient is a 50-year-old female with past medical history of diabetes mellitus type 2, dyslipidemia and CAD with 2 stents in 2016 and 2018 who comes with chest pressure that is radiating to her left shoulder that started last night during rest. Patient did wake up this morning at 7:00 in the morning and noticed that the pain is worse than before, 10 out of 10 and was similar to a presentation that resulted in myocardial infarction in 2018. Patient endorses some nausea and vomiting and may have missed some doses of her medication. She has associated shortness of breath. Nitroglycerin in the emergency department did relieve her pain. Family history is positive for uncle who of an [place] in his early 30s. Patient also has been having increasing stress because of her mother who has terminal cancer and is actually admitted to the hospital. She has more stress from that apparently. Denies fevers, cough, abdominal pain, diarrhea, dysuria or bloody stools. Patient is not vaccinated for Covid. Due to the patient's high risk patient was taken by Dr. Yousuf Cintron to the [facility]. Coronary artery disease revealed patent stents in the LAD. EF was normal. No interventions were done during the catheterization. 12/30/20 Patient seen and examined at bedside Patient states she still has some chest pain Patient says her mother is also on the 6th floor a few doors down [facility] Chart reviewed Vitals/I&O Vitals/I&O: Vital Signs Date Time Temp Pulse Resp B/P (MAP) Pulse Ox O2 Delivery O2 Flow Rate FiO2 12/30/20 07:00 98.6 66 16 110/75 (87) 94 Room Air 98.6 12/30/20 03:00 2.0 I & O 12/29/20 12/29/20 12/30/20 15:00 23:00 07:00 Intake Total 400 ml 1580 ml Balance 400 ml 1580 ml Physical Exam General: Alert, Oriented X3, Cooperative Heart: Regular rate, Normal S1, Normal S2, No murmurs Lungs: Clear Abdomen: Soft, No tenderness, No masses Extremities: No cyanosis, No edema, Normal pulses, No tenderness/swelling Skin: No rashes, No significant lesion Labs Labs: Laboratory Tests Test 12/29/20 09:50 12/29/20 11:08 12/29/20 12:47 12/29/20 16:20 White Blood Count 7.2 x10^3/uL (4.0-11.0) Red Blood Count 4.59 x10^6/uL (3.50-5.40) Hemoglobin 14.0 g/dL (12.0-15.5) Hematocrit 39.4 % (36.0-47.0) Mean Corpuscular Volume 86 fL (79-100) Mean Corpuscular Hemoglobin 31 pg (25-35) Mean Corpuscular Hemoglobin Concent 36 g/dL (31-37) Red Cell Distribution Width 13.2 % (11.5-14.5) Platelet Count 207 x10^3/uL (140-400) Neutrophils (%) (Auto) 62 % (31-73) Lymphocytes (%) (Auto) 30 % (24-48) Monocytes (%) (Auto) 6 % (0-9) Eosinophils (%) (Auto) 2 % (0-3) Basophils (%) (Auto) 1 % (0-3) Neutrophils # (Auto) 4.4 x10^3/uL (1.8-7.7) Lymphocytes # (Auto) 2.2 x10^3/uL (1.0-4.8) Monocytes # (Auto) 0.4 x10^3/uL (0.0-1.1) Eosinophils # (Auto) 0.1 x10^3/uL (0.0-0.7) Basophils # (Auto) 0.1 x10^3/uL (0.0-0.2) Sodium Level 138 mmol/L (136-145) Potassium Level 3.8 mmol/L (3.5-5.1) Chloride Level 104 mmol/L (98-107) Carbon Dioxide Level 27 mmol/L (21-32) Anion Gap 7 (6-14) Blood Urea Nitrogen 11 mg/dL (7-20) Creatinine 0.6 mg/dL (0.6-1.0) Estimated GFR (Cockcroft-Gault) 106.7 BUN/Creatinine Ratio 18 (6-20) Glucose Level 259 mg/dL (70-99) Calcium Level 8.5 mg/dL (8.5-10.1) Total Bilirubin 0.3 mg/dL (0.2-1.0) Aspartate Amino Transf (AST/SGOT) 10 U/L (15-37) Alanine Aminotransferase (ALT/SGPT) 14 U/L (14-59) Alkaline Phosphatase 114 U/L (46-116) Troponin I Quantitative < 0.017 ng/mL (0.000-0.055) < 0.017 ng/mL (0.000-0.055) < 0.017 ng/mL (0.000-0.055) Total Protein 6.0 g/dL (6.4-8.2) Albumin 3.1 g/dL (3.4-5.0) Albumin/Globulin Ratio 1.1 (1.0-1.7) SARS-CoV-2 Antigen (Rapid) Negative (NEGATIVE) Test 12/29/20 16:55 12/29/20 20:25 12/30/20 03:15 12/30/20 07:40 Glucose (Fingerstick) 335 mg/dL (70-99) 121 mg/dL (70-99) 206 mg/dL (70-99) White Blood Count 6.2 x10^3/uL (4.0-11.0) Red Blood Count 4.10 x10^6/uL (3.50-5.40) Hemoglobin 12.3 g/dL (12.0-15.5) Hematocrit 35.9 % (36.0-47.0) Mean Corpuscular Volume 88 fL (79-100) Mean Corpuscular Hemoglobin 30 pg (25-35) Mean Corpuscular Hemoglobin Concent 34 g/dL (31-37) Red Cell Distribution Width 13.6 % (11.5-14.5) Platelet Count 178 x10^3/uL (140-400) Neutrophils (%) (Auto) 46 % (31-73) Lymphocytes (%) (Auto) 46 % (24-48) Monocytes (%) (Auto) 6 % (0-9) Eosinophils (%) (Auto) 2 % (0-3) Basophils (%) (Auto) 1 % (0-3) Neutrophils # (Auto) 2.8 x10^3/uL (1.8-7.7) Lymphocytes # (Auto) 2.8 x10^3/uL (1.0-4.8) Monocytes # (Auto) 0.4 x10^3/uL (0.0-1.1) Eosinophils # (Auto) 0.1 x10^3/uL (0.0-0.7) Basophils # (Auto) 0.0 x10^3/uL (0.0-0.2) Sodium Level 142 mmol/L (136-145) Potassium Level 3.7 mmol/L (3.5-5.1) Chloride Level 106 mmol/L (98-107) Carbon Dioxide Level 29 mmol/L (21-32) Anion Gap 7 (6-14) Blood Urea Nitrogen 10 mg/dL (7-20) Creatinine 0.7 mg/dL (0.6-1.0) Estimated GFR (Cockcroft-Gault) 89.3 Glucose Level 211 mg/dL (70-99) Calcium Level 8.2 mg/dL (8.5-10.1) Phosphorus Level 4.4 mg/dL (2.6-4.7) Magnesium Level 2.0 mg/dL (1.8-2.4) Review of Systems Review of Systems: Denies headache Bladder and bowel continent Assessment and Plan Assessmemt and Plan Assessment Chest Pain Anxiety CAD (W/ STENTS) Cancer Depression Diabetes-Type II High Cholesterol [place] STOMACH ULCERS IBS Plan Cardiac monitoring Await cardiology input Trend labs DVT prophylaxis Full code Probable discharge today if cardiology okays Comment Review of Relevant I have reviewed the following items vicky (where applicable) has been applied. Medications: Current Medications Medications (Trade) Dose Ordered Sig/Sanjuana Route PRN Reason Start Time Stop Time Status Last Admin Dose Admin Nitroglycerin (Nitrostat) 0.4 mg PRN Q5MIN PRN SL CP RATING > 05/3112/29/20 09:45 12/29/20 16:19 DC 12/29/20 10:00 Nitroglycerin (Nitro-Bid Oint) 1 inch 1X ONCE TP 12/29/20 10:45 12/29/20 10:46 DC 12/29/20 10:12 Ondansetron HCl (Zofran) 4 mg 1X ONCE IVP 12/29/20 10:45 12/29/20 10:46 DC 12/29/20 10:13 Nitroglycerin/ Dextrose 250 ml @ 0 mls/hr 1X ONCE IV 12/29/20 11:15 12/29/20 11:16 DC 12/29/20 11:25 Morphine Sulfate (Morphine Sulfate) 2 mg 1X ONCE IM 12/29/20 11:15 12/29/20 11:16 DC 12/29/20 11:26 Nitroglycerin (Nitroglycerin) 200 mcg 1X ONCE IART 12/29/20 12:30 12/29/20 12:31 DC 12/29/20 13:31 Verapamil HCl (Verapamil) 2.5 mg 1X ONCE IART 12/29/20 12:30 12/29/20 12:31 DC 12/29/20 13:31 Heparin Sodium (Porcine) (Heparin Sodium) 2,500 unit 1X ONCE IART 12/29/20 12:30 12/29/20 12:31 DC 12/29/20 13:31 Heparin Sodium/ Sodium Chloride (HEPARIN for ARTERIAL LINE FLUSH) 1,000 unit 1X ONCE IART 12/29/20 12:30 12/29/20 12:31 DC 12/29/20 12:30 Heparin Sodium/ Sodium Chloride (HEPARIN for ARTERIAL LINE FLUSH) 1,000 unit 1X ONCE IART 12/29/20 12:30 12/29/20 12:31 DC 12/29/20 12:30 Midazolam HCl (Versed) 2 mg 1X ONCE IV 12/29/20 12:30 12/29/20 12:31 DC 12/29/20 13:28 Fentanyl Citrate (Fentanyl 2ml Vial) 100 mcg 1X ONCE IV 12/29/20 12:30 12/29/20 12:31 DC 12/29/20 13:28 Iohexol (Omnipaque 300 Mg/ml) 100 ml 1X ONCE IART 12/29/20 12:30 12/29/20 12:31 DC 12/29/20 13:42 Lidocaine HCl (Xylocaine-Mpf 1% 2ml Vial) 2 ml 1X ONCE INJ 12/29/20 12:30 12/29/20 12:31 DC 12/29/20 13:30 Sodium Chloride 1,000 ml @ 75 mls/hr [id number] IV 12/29/20 14:30 12/30/20 06:39 DC 12/29/20 16:56 Insulin Human Lispro (HumaLOG) 0-7 UNITS TIDWMEALS SQ 12/29/20 17:00 12/29/20 18:39 Enoxaparin Sodium (Lovenox 40mg Syringe) 40 mg Q24H SQ 12/29/20 17:00 12/29/20 17:04 Alprazolam (Xanax) 1 mg TID PRN PRN PO ANXIETY / AGITATION 12/29/20 16:30 12/29/20 21:35 Oxycodone/ Acetaminophen (Percocet 5/325) 1 tab PRN Q6HRS PRN PO MODERATE TO SEVERE PAIN 12/29/20 16:30 12/29/20 23:48 Trazodone HCl (Desyrel) 100 mg HS PO 12/29/20 21:00 12/29/20 21:35 Cyclobenzaprine HCl (Flexeril) 5 mg QHS PO 12/29/20 21:00 12/29/20 21:35 Insulin Glargine (Lantus Syringe) 45 unit QHS SQ 12/29/20 21:00 12/29/20 21:00 Atorvastatin Calcium (Lipitor) 5 mg QHS PO 12/29/20 21:00 12/29/20 21:35 Justifications for Admission Other Justification Chest pain NGOC THORNE III DO Dec 30, 2020 09:21
[2020-12-30] MEDS: INSULIN LISPRO 300 UNITS/3 ML VIAL. SQ SCH ×2 (09:29→12:56)
[2020-12-30 11:00] VITALS: BP 118/76
--- NOTE | 2020-12-30 12:33 | NUR ---
SS following for discharge planning. SS reviewed pt chart and discussed with pt RN. Pt is from home and is currently on room air. Cardiology following. COVID19 negative. Discharge order on the chart for home with self care.
[2020-12-30] MEDS: ALPRAZolam 1 MG TABLET PO PRN (12:48)
--- NOTE | 2020-12-30 14:15 | NUR ---
Discharge Note: KENDRA MONACO Discharge instructions and discharge home medications reviewed with Patient and a copy given. All questions have been answered and understanding verbalized. The following instructions and handouts were given: radial site, cardiac catheterization after care. Patient discharged to home with self care via ambulatory.
--- NOTE | 2020-12-30 16:30 | CARD ---
MR#: [id number] Date of Study: 12/29/2020 Ordering Physician: KWADWO RUIZ, Referring Physician: KWADWO RUIZ Tech: Sourav Toledo [facility] APPROVED REPORT EXAM: Two-dimensional and M-mode echocardiogram with Doppler and color Doppler. INDICATION Chest Pain RISK FACTORS Hyperlipidemia Diabetes Smoking 2D DIMENSIONS Left Atrium(2D)2.9 (1.6-4.0cm)IVSd1.0 (0.7-1.1cm) Aortic Root(2D)3.0 (2.0-3.7cm)LVDd3.5 (3.9-5.9cm) LVOT Diameter2.0 (1.8-2.4cm)PWd1.0 (0.7-1.1cm) LVDs1.8 (2.5-4.0cm)FS (%) 46.6 % SV38.8 mlLVEF(%)79.0 (>50%) Aortic Valve AoV Peak Chaim.108.5cm/sAoV VTI21.2cm AO Peak GR.4.7mmHgLVOT Peak Chaim.86.4cm/s AO Mean GR.3mmHgAVA (VMAX)2.46cm2 Mitral Valve MV E Gofhquve77.4cm/sMV E Peak Gr.3mmHg MV DECEL [id number] A Dgtiygmp79.5cm/s MV E Mean Gr.1mmHgE/A Ratio1.5 Pulmonary Valve PV Peak Rpljhxcx69.8cm/s Tricuspid Valve TR P. Szdusmcd262io/sTR Peak Gr.16mmHg Pulmonary Vein S1 Tkwrhidx25.4cm/sD2 Gczpilav58.3cm/s LEFT VENTRICLE The left ventricle is normal size. There is normal left ventricular wall thickness. The left ventricu lar systolic function is normal. The ejection fraction is 60-65%. There is normal LV segmental wall m otion. The left ventricular diastolic function and filling is normal for age. No left ventricle throm bus noted on this study. There is no ventricular septal defect visualized. There is no left ventricul ar aneurysm. There is no mass noted in the left ventricle. RIGHT VENTRICLE The right ventricle is normal size. There is normal right ventricular wall thickness. The right ventr icular systolic function is normal. ATRIA The left atrium size is normal. The right atrium size is normal. The interatrial septum is intact wit h no evidence for an atrial septal defect or patent foramen ovale as noted on 2-D or Doppler imaging. AORTIC VALVE The aortic valve is normal in structure and function. Doppler and Color Flow revealed no significant aortic regurgitation. There is no significant aortic valvular stenosis. There is no aortic valvular v egetation. MITRAL VALVE The mitral valve is normal in structure and function. There is no evidence of mitral valve prolapse. There is no mitral valve stenosis. Doppler and Color-flow revealed trace mitral regurgitation. TRICUSPID VALVE The tricuspid valve is normal in structure and function. Doppler and Color Flow revealed trace tricus pid regurgitation. There is no tricuspid valve prolapse or vegetation. There is no tricuspid valve st enosis. PULMONIC VALVE The pulmonary valve is normal in structure and function. Doppler and Color Flow revealed no pulmonic valvular regurgitation. There is no pulmonic valvular stenosis. GREAT VESSELS The aortic root is normal in size. The ascending aorta is normal in size. The pulmonary artery is nor mal. The IVC is normal in size and collapses >50% with inspiration. PERICARDIAL EFFUSION There is no pleural effusion. There is no evidence of significant pericardial effusion. Critical Notification Critical Value: No <Conclusion> The left ventricular systolic function is normal. The ejection fraction is 60-65%. There is normal LV segmental wall motion. Trace mitral regurgitation. Trace tricuspid regurgitation. There is no evidence of significant pericardial effusion. Signed by : Elvin Teixeira, Electronically Approved : 12/30/2020 16:30:22
--- NOTE | 2020-12-31 12:06 | DS ---
DATE OF DISCHARGE: 12/30/2020 ADMISSION DIAGNOSIS: Chest pain. DISCHARGE DIAGNOSES: Resolving atypical chest pain, history of anxiety, coronary artery disease with previous stents, cancer, oophorectomy, depression, diabetes, hypertension, myocardial infarction, stomach ulcers, , double mastectomy. CONSULTS: Cardiology. PROCEDURES: Cardiac cath, which was clean. HOSPITAL COURSE: The patient is a pleasant, middle-aged female, who presented with chest pain. We admitted her. We did serial enzymes and serial EKGs. We consulted Cardiology. She was taken for cardiac cath that was negative. Yesterday, I saw and examined her. She is at her baseline. We discharged her to home. DISPOSITION: Home. ACTIVITY: As tolerated. DIET: Low sodium. MEDICATIONS: Please see MRAD. They are Xanax 1 t.i.d. p.r.n., baby aspirin daily, BuSpar 150 daily, Plavix 75 a day, cyclobenzaprine 5 at bedtime, fluoxetine 10 a day, insulin 45 units of Levemir at bedtime, lovastatin 10 a day, metformin 1000 b.i.d., metoprolol 25 daily, oxycodone 5 mg q.8 p.r.n., Effient 1 tab daily, trazodone 100 a day. Total time [address]: Rosa Isela TID: [id number]
== END 2020-12-30 13:15 | disposition home or self-care (01) | DRG 287 ==
LOC: ER 09:38 → ED HOLD 10:27 → 6 SOUTH 14:10
PROVIDERS: ADMIT Internal Medicine; ATTEND Internal Medicine
PROC: 4A023N7 Measurement of Cardiac Sampling and Pressure, Left Heart, Percutaneous Approach (ICD-10-PCS; principal; 2020-12-29)
PROC: B2111ZZ Fluoroscopy of Multiple Coronary Arteries using Low Osmolar Contrast (ICD-10-PCS; 2020-12-29)
PROC: B2151ZZ Fluoroscopy of Left Heart using Low Osmolar Contrast (ICD-10-PCS; 2020-12-29)
DX: R07.89 Other chest pain (principal); E46 Unspecified protein-calorie malnutrition; E11.65 Type 2 diabetes mellitus with hyperglycemia; E78.00 Pure hypercholesterolemia, unspecified; E78.5 Hyperlipidemia, unspecified; F17.210 Nicotine dependence, cigarettes, uncomplicated; F32.9 Major depressive disorder, single episode, unspecified; F41.9 Anxiety disorder, unspecified; I11.0 Hypertensive heart disease with heart failure; I25.10 Atherosclerotic heart disease of native coronary artery without angina pectoris; I25.2 Old myocardial infarction; I50.9 Heart failure, unspecified; K58.9 Irritable bowel syndrome, unspecified; Z79.82 Long term (current) use of aspirin; Z81.8 Family history of other mental and behavioral disorders; Z82.49 Family history of ischemic heart disease and other diseases of the circulatory system; Z85.3 Personal history of malignant neoplasm of breast; Z87.11 Personal history of peptic ulcer disease; Z90.13 Acquired absence of bilateral breasts and nipples; Z90.710 Acquired absence of both cervix and uterus; Z88.0 Allergy status to penicillin; Z95.5 Presence of coronary angioplasty implant and graft; Z68.25 Body mass index [BMI] 25.0-25.9, adult; Z20.822 Contact with and (suspected) exposure to COVID-19
CPT/HCPCS: 36415; 71045; 80048; 80053; 82962; 83735; 84100; 84484; 85025; 87426; 93005; 93306; 93458; 96365; 96372; 96375; 99152; 99153; C1894; J1644; J1650; J1815; J2250; J2270; J2405; J3010; J3490; Q9967; 99285-25; G0378